=== PATIENT | female | born 1940 | race Caucasian/White ===

== ENCOUNTER 2016-08-06 10:07 | Inpatient (IN) | payer MEDICARE, OTHER ==
[2016-08-06 10:08] VITALS: BMI 19.6
[2016-08-06] MEDS ORDERED: Albuterol-Ipratrop 3 mg / 0.5 (3 ml) UD ONE ×2 (10:18→11:23)
--- NOTE | 2016-08-06 10:47 | C.PDOC ---
History Of Present Illness 76-year-old male, PMHx includes Hypertension, Asthma and COPD, presents to the emergency department with complaints of shortness of breath, that started four days ago. Patient notes that this is associated with a non-productive cough and subjective fever. Patient denies nausea/vomiting, hemoptysis, diarrhea, chest pain, or any numbness, weakness. No other complaints at this time. Time Seen by Provider: 08/06/16 10:33 Chief Complaint (Nursing): Respiratory Distress History Per: Patient History/Exam Limitations: no limitations Onset/Duration Of Symptoms: Days, Persistent Current Symptoms Are (Timing): Still Present Quality: Sharp Severity: Moderate Pain Scale Rating Of: 5 Associated Symptoms: Fever, Chills. denies: Chest Pain Recent travel outside of the [place]: No Past Medical History Reviewed: Historical Data, Nursing Documentation, Vital Signs Vital Signs: Last Vital Signs Temp 98.7 F 08/06/16 10:21 Pulse 87 08/06/16 11:05 Resp 24 08/06/16 11:05 BP 151/77 H 08/06/16 11:05 Pulse Ox 93 L 08/06/16 12:06 - Medical History PMH: Asthma, COPD, HTN Family History: States: No Known Family Hx - Social History Hx Tobacco Use: No Hx Alcohol Use: No Hx Substance Use: No - Immunization History Hx Tetanus Toxoid Vaccination: No Hx Influenza Vaccination: Yes Hx Pneumococcal Vaccination: No Review Of Systems Except As Marked, All Systems Reviewed And Found Negative. Constitutional: Negative for: Fever Cardiovascular: Negative for: Chest Pain Respiratory: Positive for: Cough, Shortness of Breath Gastrointestinal: Negative for: Vomiting Musculoskeletal: Negative for: Back Pain Skin: Negative for: Rash Physical Exam - Physical Exam Appears: Non-toxic, No Acute Distress Skin: Warm, Dry, No Rash Head: Atraumatic, Normacephalic Eye(s): bilateral: Normal Inspection, PERRL Nose: Normal Oral Mucosa: Moist Lips: Normal Appearing Throat: No Erythema, No Exudate Neck: Normal ROM, Supple Cardiovascular: Rhythm Regular, No Friction Rub, No Murmur Respiratory: Decreased Breath Sounds (at the lung bases), No Accessory Muscle Use Gastrointestinal/Abdominal: Bowel Sounds (active), Soft, No Tenderness Back: Normal Inspection, No CVA Tenderness Extremity: Normal ROM, No Calf Tenderness, No Swelling Neurological/Psych: Oriented x3, Normal Speech, Normal Motor Gait: Steady ED Course And Treatment - Laboratory Results Result Diagrams: 08/06/16 11:34 08/06/16 11:09 ECG: Interpreted By Me ECG Rhythm: Sinus Rhythm Interpretation Of ECG: normal ST- T waves, normal axis, normal R wave progression Rate From EC O2 Sat by Pulse Oximetry: 93 (on RA) Pulse Ox Interpretation: Abnormal (low) - Radiology CXR: Viewed By Me, Read By Radiologist CXR Interpretation: Yes: Other (Biapical pleural thickening with upper lobe granulomatous changes. Diffuse increased interstitial lung markings. Prominent patchy bibasilar airspace opacities with associated questionable small bilateral pleural effusions.) Medical Decision Making Medical Decision Making: The patient is currently speaking in full sentences and O2 sat is 91-93% on RA. Nebulizers and solu-medrol given. CXR shows pleural thickening with increased interstitial lung markings which is more likely pneumonia than CHF as pro-BNP is negative and patient has elevated WBC. Blood culture sent and patient started on Rocephin and Zithromax IV. On re-exam, the patient reports no improvement and now has rib pain. Toradol IV given for rib pain and patient is placed on 3L NC. Lungs have mild decreased breath sounds at the base. heart is RRR, pulse ox is 96% on 3L NC. The case was discussed with Dr. Denise (PMD) who agrees to admit the patient to his service. Disposition - Disposition Disposition: HOSPITALIZED Disposition Time: 12:01 Condition: FAIR - POA Present On Arrival: None - Clinical Impression Clinical Impression: Pneumonia - Scribe Statement The provider has reviewed the documentation as recorded by the Donita Conley All medical record entries made by the Naomiibtavo were at my direction and personally dictated by me. I have reviewed the chart and agree that the record accurately reflects my personal performance of the history, physical exam, medical decision making, and the department course for this patient. I have also personally directed, reviewed, and agree with the discharge instructions and disposition.
[2016-08-06] MEDS: Albuterol-Ipratrop 3 mg / 0.5 (3 ml) UD IH SCH ×3 (11:10→11:35)
[2016-08-06 11:28] LABS: ALKALINE PHOSPHATASE 146 U/L (38-126); ALT/SGPT 28 U/L (9-52); AST/SGOT 39 U/L (14-36); BILIRUBIN,TOTAL 2.3 mg/dL (0.2-1.3); BLOOD UREA NITROGEN 24 mg/dL (7-17); CALCIUM 8.5 mg/dl (8.6-10.4); CARBON DIOXIDE 25 mmol/L (22-30); CHLORIDE 90 mmol/L (98-107); GFR AFRICAN-AMERICAN > 60; GLUCOSE,RANDOM 116 mg/dL (65-105); POTASSIUM 3.2 mmol/L (3.6-5.2); SODIUM 129 mmol/L (132-148); TOTAL PROTEIN 7.6 g/dL (6.3-8.3)
--- NOTE | 2016-08-06 11:28 | RAD ---
PROCEDURE: CHEST RADIOGRAPH, 1 VIEW HISTORY: SOB, cough COMPARISON: 04/20/2013 FINDINGS: LUNGS: Biapical pleural thickening with upper lobe granulomatous changes. Diffuse increased interstitial lung markings. Prominent patchy bibasilar airspace opacities with associated questionable small bilateral pleural effusions. PLEURA: As above. CARDIOVASCULAR: Cardiomegaly. Calcification at the aortic knob. Right paratracheal airspace opacity may represent prominent vasculature. OSSEOUS STRUCTURES: Degenerative changes in the spine and shoulders. VISUALIZED UPPER ABDOMEN: Normal. OTHER FINDINGS: None. IMPRESSION: Biapical pleural thickening with upper lobe granulomatous changes. Diffuse increased interstitial lung markings. Prominent patchy bibasilar airspace opacities with associated questionable small bilateral pleural effusions.
[2016-08-06 11:39] LABS: BASO % 0.3 % (0.0-2.0); EOS % 0.2 % (0.0-4.0); HEMATOCRIT 36.9 % (34.0-47.0); LYMPH # 1.4 K/uL (1.0-4.3); LYMPH % 8.7 % (20.0-40.0); MEAN CORPUSCULAR HEMOGLOBIN 29.6 pg (27.0-31.0); MEAN CORPUSCULAR HGB CONC 33.3 g/dL (33.0-37.0); MONO # 1.3 K/uL (0.0-0.8); MONO % 8.1 % (0.0-10.0); PLATELET COUNT 334 K/uL (130-400); RED CELL DISTRIBUTION WIDTH 13.7 % (11.5-14.5)
[2016-08-06 11:42] LABS: WHITE BLOOD COUNT 15.7 K/uL (4.8-10.8)
[2016-08-06] MEDS ORDERED: Sodium Chloride 0.9% 1,000 ML IV ONE (11:54)
[2016-08-06] MEDS ORDERED: cefTRIAXone IV 1 gm in Dextros 50 ML IV ONE (12:06)
[2016-08-06] MEDS ORDERED: Azithromycin 500mg/250ML NS 500 MG/250 ML BAG IV SCH (12:15)
[2016-08-06] MEDS ORDERED: cefTRIAXone IV 1 gm in Dextros 50 ML IVPB ONE (12:24)
[2016-08-06] MEDS ORDERED: Azithromycin 500mg/250ML NS 500 MG/250 ML BAG IVPB ONE (13:03)
[2016-08-06 14:03] LABS: EOSINOPHIL 1 % (0-4); NEUTROPHIL 78 % (50-75); TOTAL CELLS COUNTED 100
[2016-08-06] MEDS ORDERED: Potassium Chloride 20 mEq ER Tab PO STA (14:13)
[2016-08-06] MEDS ORDERED: Potassium Chloride 20 mEq ER Tab PO ONE (14:52)
--- NOTE | 2016-08-06 17:04 | CP.PCM.HP ---
History of Present Illness - History of Present Illness History of Present Illness: CC: shortness of breath and cough Patient is a 76 year old female with past medical history hypertension , asthma, and COPD presenting to the ED with shortness of breath. Patient states that the shortness of breath began four days ago while she was at home. Patient describes the shortness of breath as different than an asthma attack, experiencing associated fevers, chills, and cough. She states the cough is productive with beige-yellow phlegm production. Patient reports that Mucinex helped her expectorate phlegm this weekend and she is not coughing as much today. Patient denies headache, dizziness, nausea, vomiting, hemoptysis, chest pain, palpitations, abdominal pain, diarrhea, constipation, numbness, tingling, and lower extremity swelling. PMD: Dr. Denise PMHx: HTN, asthma, COPD Meds: Amlodipine 10mg, Ventolin HFA 90 mcg/actuation IH, Advair 250/50 1 puff q12h Allergies: seasonal; NKDA PSHx: hysterectomy 2014 Hospitalizations: several hospitalizations for asthma exacerbation, most recent July 2014 Social: lives in [place] apartment with , retired, quit smoking 37 years ago with 5 pack years prior, denies alcohol use, denies recreational drug use Present on Admission - Present on Admission Any Indicators Present on Admission: No History of DVT/PE: No History of Uncontrolled Diabetes: No Urinary Catheter: No Decubitus Ulcer Present: No Review of Systems - Constitutional Constitutional: Chills, Fatigue, Fever. absent: Excessive Sweating, Headache, Night Sweats - EENT Eyes: absent: Change in Vision, Discharge Nose/Mouth/Throat: absent: Nasal Congestion, Nasal Discharge, Post Nasal Drip, Sore Throat - Cardiovascular Cardiovascular: absent: Chest Pain, Palpitations, Rapid Heart Rate - Respiratory Respiratory: Cough, Change in Mucous Color, Pain with Coughing. absent: Hemoptysis, Wheezing - Gastrointestinal Gastrointestinal: absent: Abdominal Pain, Constipation, Diarrhea, Nausea, Vomiting - Genitourinary Genitourinary: absent: Hematuria, Urinary Frequency - Musculoskeletal Musculoskeletal: absent: Arthralgias, Muscle Cramps, Muscle Weakness, Numbness, Stiffness, Tingling - Integumentary Integumentary: absent: Rash, Swelling - Neurological Neurological: absent: Dizziness, Numbness, Headaches, Paresthesias, Tingling, Weakness - Psychiatric Psychiatric: absent: Confusion, Irritability Past Patient History - Infectious Disease Hx of Infectious Diseases: None - Past Social History Smoking Status: Never Smoked - CARDIAC Hx Hypertension: Yes - PULMONARY Hx Asthma: Yes Hx Chronic Obstructive Pulmonary Disease (COPD): Yes - PSYCHIATRIC Hx Substance Use: No - SURGICAL HISTORY Hx Surgeries: Yes Hx Orthopedic Surgery: Yes (foot sx) Other/Comment: 'Ovarian sx' Meds Allergies/Adverse Reactions: Allergies Allergy/AdvReac Type Severity Reaction Status Date / Time No Known Allergies Allergy Verified 10/23/12 05:27 Physical Exam - Constitutional Appears: Well, No Acute Distress, Younger Than Stated Age - Head Exam Head Exam: ATRAUMATIC, NORMOCEPHALIC - Eye Exam Eye Exam: EOMI, Normal appearance, PERRL - ENT Exam ENT Exam: Mucous Membranes Moist - Neck Exam Neck exam: Positive for: Normal Inspection - Respiratory Exam Respiratory Exam: Chest Wall Tenderness, Rhonchi - Cardiovascular Exam Cardiovascular Exam: Tachycardia, +S1, +S2. absent: Gallop, Rubs - GI/Abdominal Exam GI & Abdominal Exam: Normal Bowel Sounds, Soft. absent: Firm, Guarding, Rebound , Tenderness - Exam Exam: absent: Bladder Distension - Extremities Exam Extremities exam: Positive for: normal inspection. Negative for: joint swelling , pedal edema, tenderness - Back Exam Back exam: NORMAL INSPECTION. absent: CVA tenderness (L), CVA tenderness (R) - Neurological Exam Neurological exam: Alert, CN II-XII Intact, Oriented x3 - Psychiatric Exam Psychiatric exam: Normal Affect, Normal Mood - Skin Skin Exam: Dry, Intact Results - Vital Signs Recent Vital Signs: Last Vital Signs Temp 98.4 F 08/06/16 16:36 Pulse 86 08/06/16 16:36 Resp 18 08/06/16 16:36 BP 164/97 H 08/06/16 16:36 Pulse Ox 96 08/06/16 16:36 - Labs Result Diagrams: 08/06/16 11:34 08/06/16 11:09 Labs: Laboratory Results - last 24 hr 08/06/16 15:11 Influenza Typ A,B (EIA) Negative for flu a/b Assessment & Plan - Assessment and Plan (Free Text) Assessment: Shortness of Breath likely secondary to pneumonia Productive cough, fever/chills x 4 days WBC 15.7, will monitor Band neutrophils 5, will monitor Chest X ray: Diffuse pleural thickening with upper lobe granulomatous changes. Diffuse increased interstitial lung markings. Prominent patchy bibasilar airspace opacities with associated questionable small bilateral pleural effusions Procalcitonin ordered, will follow up Shock VBG ordered, will follow up Influenza antibody - negative Legionella urine antigen ordered Mycoplasma pneumoniae IgM ordered Strep pneumoniae serology ordered - will follow up f/u Sputum culture Rocephin 1gm IV given in ED. Azithromycin 500mg IV given in ED. Will continue Rocephin 1 gm IVPB daily and Azithromycin 500 mg IVPB daily Duoneb 3ml INH RQ6 [facility] Mucinex DM q4h PRN History of Asthma Duoneb 3ml INH RQ6 Consider starting Singular 10mg po HS Will monitor History of COPD Advair 250/50 1 puff INH RQ12 Will monitor Hyponatremia Sodium 129 - will monitor Fluid restriction 1500mL /day If no improvement, consider chest CT Hypokalemia Potassium 3.3 - likely secondary to Duoneb treatment kdur 40 mEq PO ordered STAT Will monitor Hypertension Continue home medication amlodipine 10mg PO daily Will monitor and adjust as needed Prophylaxis Lovenox 40mg SC daily SCD Pepcid 20 mg po daily - Date & Time Date: 08/06/16 Time: 17:30
[2016-08-07] MEDS: Albuterol-Ipratrop 3 mg / 0.5 (3 ml) UD INH SCH ×4 (01:19→19:52)
[2016-08-07] MEDS: guaiFENesin DM 200 mg-20 mg/10 ml UD PO PRN ×3 (02:32→18:09)
[2016-08-07 07:39] LABS: BASO % 0.1 % (0.0-2.0); HEMATOCRIT 35.4 % (34.0-47.0); LYMPH # 0.8 K/uL (1.0-4.3); LYMPH % 6.6 % (20.0-40.0); MEAN CELL VOLUME 89.1 fL (81.0-99.0); MEAN CORPUSCULAR HEMOGLOBIN 29.4 pg (27.0-31.0); MONO # 0.8 K/uL (0.0-0.8); MONO % 6.2 % (0.0-10.0); NRBC % 0.1 % (0.0-2.0); PLATELET COUNT 390 K/uL (130-400); RED CELL DISTRIBUTION WIDTH 13.5 % (11.5-14.5); WHITE BLOOD COUNT 12.7 K/uL (4.8-10.8)
[2016-08-07 08:00] LABS: CHLORIDE 100 mmol/L (98-107)
[2016-08-07 08:01] LABS: POTASSIUM 4.2 mmol/L (3.6-5.2); SODIUM 135 mmol/L (132-148)
[2016-08-07 08:02] LABS: CHOLESTEROL 182 mg/dL (0-199)
[2016-08-07 08:03] LABS: ALKALINE PHOSPHATASE 133 U/L (38-126); AST/SGOT 26 U/L (14-36); BILIRUBIN,TOTAL 0.6 mg/dL (0.2-1.3); BLOOD UREA NITROGEN 24 mg/dL (7-17); CARBON DIOXIDE 24 mmol/L (22-30); GFR AFRICAN-AMERICAN > 60; GLUCOSE,RANDOM 168 mg/dL (65-105)
[2016-08-07 08:04] LABS: ALT/SGPT 23 U/L (9-52); MAGNESIUM 2.4 mg/dL (1.6-2.3)
[2016-08-07 09:46] LABS: NEUTROPHIL 80 % (50-75); TOTAL CELLS COUNTED 100
[2016-08-07] MEDS: Fluticasone-Salmeterol 250-50mcg Diskus INH SCH ×2 (10:19→19:49)
[2016-08-07] MEDS: Enoxaparin 40 mg Syringe SC SCH (11:02)
--- NOTE | 2016-08-07 14:02 | CP.PCM.PN ---
<RomyMilan - Last Filed: 08/07/16 13:59> Subjective - Date & Time of Evaluation Date of Evaluation: 08/07/16 Time of Evaluation: 08:00 - Subjective Subjective: PGY-1 Medicine Progress Note for Dr. Denise Patient seen and examiend at bedside. No acute event overnight. Patient resting in bed comfortably receiving breathing treatment. Patient stated that her breathing has improved. She also reported that mucinex is helping with her cough. Patient continuing IV abx. She is tolerating diet and had a BM yesterday. Deneid fever/chills, cp, palpitaions, abd pain, n/v/d, incontinence. Objective - Vital Signs/Intake and Output Vital Signs (last 24 hours): Temp Pulse Resp BP Pulse Ox 97.7 F 82 20 167/82 H 100 08/07/16 08:00 08/07/16 08:00 08/07/16 08:00 08/07/16 08:00 08/07/16 08:00 Intake and Output: 08/07/16 08/07/16 06:59 18:59 Intake Total 150 Balance 150 - Medications Medications: Current Medications Albuterol/Ipratropium (Duoneb 3 Mg/0.5 Mg (3 Ml) Ud) 3 ml INH RQ6 [facility] Last Admin: 08/07/16 13:29 Dose: 3 ml Amlodipine Besylate (Norvasc) 10 mg PO DAILY [facility] Last Admin: 08/07/16 11:02 Dose: 10 mg Enoxaparin Sodium (Lovenox) 40 mg SC DAILY [facility] Last Admin: 08/07/16 11:02 Dose: 40 mg Famotidine (Pepcid) 20 mg PO DAILY [facility] Last Admin: 08/07/16 11:02 Dose: 20 mg Guaifenesin/Dextromethorphan (Robitussin Dm) 10 ml PO Q4H PRN PRN Reason: Cough and congestion Last Admin: 08/07/16 11:15 Dose: 10 ml Azithromycin 500 mg/ Sodium (Chloride) 250 mls @ 250 mls/hr IVPB DAILY [facility] Ceftriaxone Sodium 1 gm/ (Sodium Chloride) 100 mls @ 100 mls/hr IVPB DAILY [facility] Last Admin: 08/07/16 11:02 Dose: 100 mls/hr Fluticasone/Salmeterol (Advair Diskus 250/50) 1 puff INH RQ12 [facility] Last Admin: 08/07/16 10:19 Dose: Not Given - Labs Labs: 08/07/16 06:35 08/07/16 06:35 - Constitutional Appears: No Acute Distress, Younger Than Stated Age - Head Exam Head Exam: ATRAUMATIC, NORMOCEPHALIC - Eye Exam Eye Exam: EOMI, Normal appearance Pupil Exam: PERRL - ENT Exam ENT Exam: Mucous Membranes Moist - Neck Exam Neck Exam: Normal Inspection - Respiratory Exam Respiratory Exam: Chest Wall Tenderness, Rhonchi, NORMAL BREATHING PATTERN. absent: Accessory Muscle Use, Respiratory Distress - Cardiovascular Exam Cardiovascular Exam: RRR, +S1, +S2 - GI/Abdominal Exam GI & Abdominal Exam: Soft, Normal Bowel Sounds. absent: Tenderness - Extremities Exam Extremities Exam: Normal Capillary Refill. absent: Calf Tenderness - Back Exam Back Exam: absent: CVA tenderness (L), CVA tenderness (R) - Neurological Exam Neurological Exam: Alert, Awake, CN II-XII Intact, Oriented x3 - Psychiatric Exam Psychiatric exam: Normal Affect, Normal Mood - Skin Skin Exam: Dry, Intact Assessment and Plan - Assessment and Plan (Free Text) Plan: Shortness of Breath likely secondary to pneumonia Productive cough, fever/chills x 4 days Bands 7 today Chest X ray: Diffuse pleural thickening with upper lobe granulomatous changes. Diffuse increased interstitial lung markings. Prominent patchy bibasilar airspace opacities with associated questionable small bilateral pleural effusions Procalcitonin ordered, will follow up Shock VBG ordered, will follow up Influenza antibody - negative Legionella urine antigen ordered Mycoplasma pneumoniae IgM ordered Strep pneumoniae serology ordered - will follow up f/u Sputum culture Rocephin 1gm IVPB daily Azithromycin 500mg IVPB daily Duoneb 3ml INH RQ6 [facility] Mucinex DM q4h PRN History of Asthma Duoneb 3ml INH RQ6 Consider starting Singular 10mg po HS Will monitor History of COPD Advair 250/50 1 puff INH RQ12 Will monitor Hyponatremia Sodium 135 - will monitor Fluid restriction 1500mL /day If no improvement, consider chest CT Hypokalemia Resolved Potassium 4.2 Will monitor Hypertension Continue home medication amlodipine 10mg PO daily Will monitor and adjust as needed Prophylaxis Lovenox 40mg SC daily SCD Pepcid 20 mg po daily <Jaylon Deinse Jr. - Last Filed: 08/10/16 13:56> Objective - Vital Signs/Intake and Output Vital Signs (last 24 hours): Temp Pulse Resp BP Pulse Ox 97.9 F 95 H 20 120/72 96 08/09/16 15:00 08/09/16 15:00 08/09/16 15:00 08/09/16 15:00 08/09/16 15:00 - Labs Labs: 08/09/16 08:17 08/09/16 08:17 Attending/Attestation - Attestation I have personally seen and examined this patient.: Yes I have fully participated in the care of the patient.: Yes I have reviewed all pertinent clinical information, including history, physical exam and plan: Yes Notes (Text): 08/10/16 13:56 Agree with findings and plan
[2016-08-07] MEDS: Azithromycin 500 MG in Sodium Chloride 0.9% 250 ML IVPB SCH (14:07)
--- NOTE | 2016-08-07 19:11 | CARD ---
APPROVED REPORT EKG Measurement Heart [id number] <Conclusion> Normal sinus rhythm Normal ECG
[2016-08-08] MEDS: Albuterol-Ipratrop 3 mg / 0.5 (3 ml) UD INH SCH ×4 (01:24→19:50)
[2016-08-08] MEDS: Enoxaparin 40 mg Syringe SC SCH (09:17)
[2016-08-08] MEDS: guaiFENesin DM 200 mg-20 mg/10 ml UD PO PRN ×3 (09:18→18:42)
[2016-08-08] MEDS: Fluticasone-Salmeterol 250-50mcg Diskus INH SCH (10:34)
[2016-08-08] MEDS: Azithromycin 500 MG in Sodium Chloride 0.9% 250 ML IVPB SCH (10:37)
[2016-08-08 14:15] LABS: BASO # 0.1 K/uL (0.0-0.2); BASO % 0.7 % (0.0-2.0); EOS # 0.1 K/uL (0.0-0.7); EOS % 1.3 % (0.0-4.0); LYMPH % 18.5 % (20.0-40.0); MEAN CELL VOLUME 90.4 fL (81.0-99.0); MEAN CORPUSCULAR HEMOGLOBIN 29.5 pg (27.0-31.0); MEAN CORPUSCULAR HGB CONC 32.7 g/dL (33.0-37.0); MEAN PLATELET VOLUME 7.3 fL (7.2-11.7); MONO # 1.3 K/uL (0.0-0.8); MONO % 11.6 % (0.0-10.0); WHITE BLOOD COUNT 10.9 K/uL (4.8-10.8)
[2016-08-08 14:23] LABS: CHLORIDE 100 mmol/L (98-107); SODIUM 137 mmol/L (132-148)
[2016-08-08 14:24] LABS: POTASSIUM 3.9 mmol/L (3.6-5.2)
[2016-08-08 14:26] LABS: ALKALINE PHOSPHATASE 96 U/L (38-126); ALT/SGPT 29 U/L (9-52); AST/SGOT 22 U/L (14-36); BILIRUBIN,TOTAL 0.4 mg/dL (0.2-1.3); BLOOD UREA NITROGEN 21 mg/dL (7-17); CARBON DIOXIDE 25 mmol/L (22-30); GFR AFRICAN-AMERICAN > 60; GLUCOSE,RANDOM 111 mg/dL (65-105); TOTAL PROTEIN 6.4 g/dL (6.3-8.3)
[2016-08-08 14:27] LABS: CALCIUM 8.3 mg/dl (8.6-10.4)
--- NOTE | 2016-08-08 20:57 | CP.PCM.PN ---
<Juan Carlos Pepper - Last Filed: 08/09/16 01:38> Subjective - Date & Time of Evaluation Date of Evaluation: 08/08/16 Time of Evaluation: 07:30 - Subjective Subjective: PGY-1 Medicine Progress Note for Dr. Denise Patient seen and examiend at bedside. No acute event overnight. Patient resting in bed comfortably receiving breathing treatment. Patient stated that her breathing and cough are still improving. Patient continuing IV abx. She is still tolerating diet and denies headache, fever, chills, chest pain, difficulty breathing, N/V/D, or any GI/ symptoms. Objective - Vital Signs/Intake and Output Vital Signs (last 24 hours): Temp Pulse Resp BP Pulse Ox 98.1 F 91 H 19 134/80 95 08/08/16 15:00 08/08/16 15:00 08/08/16 15:00 08/08/16 15:00 08/08/16 15:00 Intake and Output: 08/08/16 08/09/16 18:59 06:59 Intake Total 1000 Balance 1000 - Medications Medications: Current Medications Albuterol/Ipratropium (Duoneb 3 Mg/0.5 Mg (3 Ml) Ud) 3 ml INH RQ6 [facility] Last Admin: 08/08/16 19:50 Dose: 3 ml Amlodipine Besylate (Norvasc) 10 mg PO DAILY [facility] Last Admin: 08/08/16 09:18 Dose: 10 mg Enoxaparin Sodium (Lovenox) 40 mg SC DAILY [facility] Last Admin: 08/08/16 09:17 Dose: 40 mg Famotidine (Pepcid) 20 mg PO DAILY [facility] Last Admin: 08/08/16 09:17 Dose: 20 mg Guaifenesin/Dextromethorphan (Robitussin Dm) 10 ml PO Q4H PRN PRN Reason: Cough and congestion Last Admin: 08/08/16 18:42 Dose: 10 ml Azithromycin 500 mg/ Sodium (Chloride) 250 mls @ 250 mls/hr IVPB DAILY [facility] Last Admin: 08/08/16 10:37 Dose: 250 mls/hr Ceftriaxone Sodium 1 gm/ (Sodium Chloride) 100 mls @ 100 mls/hr IVPB DAILY [facility] Last Admin: 08/08/16 09:16 Dose: 100 mls/hr Fluticasone/Salmeterol (Advair Diskus 250/50) 1 puff INH RQ12 [facility] Last Admin: 08/08/16 10:34 Dose: Not Given - Labs Labs: 08/08/16 14:04 08/08/16 14:04 - Constitutional Appears: Non-toxic, No Acute Distress - Head Exam Head Exam: ATRAUMATIC, NORMOCEPHALIC - Eye Exam Eye Exam: EOMI, Normal appearance - ENT Exam ENT Exam: Mucous Membranes Moist, Normal Exam - Neck Exam Neck Exam: Full ROM, Normal Inspection. absent: Lymphadenopathy - Respiratory Exam Respiratory Exam: Clear to Ausculation Bilateral, NORMAL BREATHING PATTERN - Cardiovascular Exam Cardiovascular Exam: REGULAR RHYTHM, RRR, +S1, +S2. absent: JVD - GI/Abdominal Exam GI & Abdominal Exam: Soft, Normal Bowel Sounds. absent: Tenderness - Extremities Exam Extremities Exam: Full ROM, Normal Capillary Refill. absent: Joint Swelling - Back Exam Back Exam: Full ROM. absent: CVA tenderness (L), CVA tenderness (R) - Neurological Exam Neurological Exam: Alert, Awake, Oriented x3 - Psychiatric Exam Psychiatric exam: Normal Affect, Normal Mood - Skin Skin Exam: Dry, Intact, Normal Color, Warm Assessment and Plan - Assessment and Plan (Free Text) Plan: Shortness of Breath likely secondary to pneumonia Productive cough, fever/chills x 4 days Bands 7 today Chest X ray: Diffuse pleural thickening with upper lobe granulomatous changes. Diffuse increased interstitial lung markings. Prominent patchy bibasilar airspace opacities with associated questionable small bilateral pleural effusions Procalcitonin ordered, negative Shock VBG ordered, will follow up Influenza antibody - negative Legionella urine antigen negative Mycoplasma pneumoniae IgM negative Strep pneumoniae serology ordered - will follow up Sputum culture - Moderate polymorphonuclear wbc's, few gram - rods Blood culture - No Growth after 48 hours Rocephin 1gm IVPB daily Azithromycin 500mg IVPB daily Duoneb 3ml INH RQ6 [facility] Mucinex DM q4h PRN History of Asthma Duoneb 3ml INH RQ6 Consider starting Singular 10mg po HS Will monitor History of COPD Advair 250/50 1 puff INH RQ12 Will monitor Hyponatremia Sodium 135 - will monitor Fluid restriction 1500mL /day If no improvement, consider chest CT Hypokalemia Resolved Potassium 4.2 Will monitor Hypertension Continue home medication amlodipine 10mg PO daily Will monitor and adjust as needed Prophylaxis Lovenox 40mg SC daily SCD Pepcid 20 mg po daily <Jaylon Denise Jr. - Last Filed: 08/10/16 13:58> Objective - Vital Signs/Intake and Output Vital Signs (last 24 hours): Temp Pulse Resp BP Pulse Ox 97.9 F 95 H 20 120/72 96 08/09/16 15:00 08/09/16 15:00 08/09/16 15:00 08/09/16 15:00 08/09/16 15:00 - Labs Labs: 08/09/16 08:17 08/09/16 08:17 Attending/Attestation - Attestation I have personally seen and examined this patient.: Yes I have fully participated in the care of the patient.: Yes I have reviewed all pertinent clinical information, including history, physical exam and plan: Yes Notes (Text): 08/10/16 13:58 Findings and plan discussed
[2016-08-08 23:35] VITALS: RESP 20
[2016-08-09] MEDS: Albuterol-Ipratrop 3 mg / 0.5 (3 ml) UD INH SCH ×3 (01:52→14:04)
[2016-08-09 07:44] VITALS: PULSE 95
[2016-08-09 08:30] LABS: BASO # 0.1 K/uL (0.0-0.2); BASO % 0.9 % (0.0-2.0); EOS # 0.3 K/uL (0.0-0.7); EOS % 3.4 % (0.0-4.0); HEMATOCRIT 38.9 % (34.0-47.0); LYMPH % 24.6 % (20.0-40.0); MEAN CELL VOLUME 89.8 fL (81.0-99.0); MEAN CORPUSCULAR HGB CONC 32.3 g/dL (33.0-37.0); MEAN PLATELET VOLUME 7.3 fL (7.2-11.7); MONO # 0.5 K/uL (0.0-0.8); MONO % 6.5 % (0.0-10.0); RED CELL DISTRIBUTION WIDTH 13.9 % (11.5-14.5); WHITE BLOOD COUNT 7.9 K/uL (4.8-10.8)
[2016-08-09 08:39] LABS: CHLORIDE 97 mmol/L (98-107); POTASSIUM 3.7 mmol/L (3.6-5.2); SODIUM 138 mmol/L (132-148)
[2016-08-09 08:41] LABS: ALB/GLOB RATIO 1.1 (1.0-2.1); ALKALINE PHOSPHATASE 100 U/L (38-126); ALT/SGPT 14 U/L (9-52); AST/SGOT 19 U/L (14-36); BILIRUBIN,TOTAL 0.5 mg/dL (0.2-1.3); BLOOD UREA NITROGEN 20 mg/dL (7-17); CARBON DIOXIDE 23 mmol/L (22-30); GFR AFRICAN-AMERICAN > 60; GLUCOSE,RANDOM 149 mg/dL (65-105); TOTAL PROTEIN 6.8 g/dL (6.3-8.3)
[2016-08-09] MEDS: Fluticasone-Salmeterol 250-50mcg Diskus INH SCH ×2 (08:48→12:11)
--- NOTE | 2016-08-09 08:57 | CP.PCM.PN ---
<Sinai Peterson - Last Filed: 08/09/16 10:45> Subjective - Date & Time of Evaluation Date of Evaluation: 08/09/16 Time of Evaluation: 08:54 - Subjective Subjective: Patient seen and examined at bedside. No acute events per nursing. She is resting comfortably, sitting at side of bed, watching television. Patient states her breathing is improved and she denies shortness of breath. She continues to have cough productive of beige sputum. She denies fever, chills, chest pain, abdominal pain, nausea and vomiting. She is tolerating diet well and having normal bowel movements. Objective - Vital Signs/Intake and Output Vital Signs (last 24 hours): Temp Pulse Resp BP Pulse Ox 98.3 F 95 H 20 114/70 95 08/09/16 07:41 08/09/16 07:41 08/09/16 07:41 08/09/16 07:41 08/09/16 07:41 Intake and Output: 08/09/16 08/09/16 06:59 18:59 Intake Total 500 Balance 500 - Medications Medications: Current Medications Albuterol/Ipratropium (Duoneb 3 Mg/0.5 Mg (3 Ml) Ud) 3 ml INH RQ6 [facility] Last Admin: 08/09/16 08:47 Dose: 3 ml Amlodipine Besylate (Norvasc) 10 mg PO DAILY [facility] Last Admin: 08/08/16 09:18 Dose: 10 mg Enoxaparin Sodium (Lovenox) 40 mg SC DAILY [facility] Last Admin: 08/08/16 09:17 Dose: 40 mg Famotidine (Pepcid) 20 mg PO DAILY [facility] Last Admin: 08/08/16 09:17 Dose: 20 mg Guaifenesin/Dextromethorphan (Robitussin Dm) 10 ml PO Q4H PRN PRN Reason: Cough and congestion Last Admin: 08/08/16 18:42 Dose: 10 ml Azithromycin 500 mg/ Sodium (Chloride) 250 mls @ 250 mls/hr IVPB DAILY [facility] Last Admin: 08/08/16 10:37 Dose: 250 mls/hr Ceftriaxone Sodium 1 gm/ (Sodium Chloride) 100 mls @ 100 mls/hr IVPB DAILY [facility] Last Admin: 08/08/16 09:16 Dose: 100 mls/hr Fluticasone/Salmeterol (Advair Diskus 250/50) 1 puff INH RQ12 [facility] Last Admin: 08/09/16 08:48 Dose: Not Given - Labs Labs: 08/09/16 08:17 08/09/16 08:17 - Constitutional Appears: Non-toxic, No Acute Distress - Head Exam Head Exam: ATRAUMATIC, NORMAL INSPECTION, NORMOCEPHALIC - Eye Exam Eye Exam: EOMI, Normal appearance, PERRL - ENT Exam ENT Exam: Mucous Membranes Moist - Respiratory Exam Respiratory Exam: Clear to Ausculation Bilateral, NORMAL BREATHING PATTERN. absent: Rales, Rhonchi, Wheezes - Cardiovascular Exam Cardiovascular Exam: +S1, +S2. absent: Tachycardia - GI/Abdominal Exam GI & Abdominal Exam: Soft, Normal Bowel Sounds. absent: Distended, Firm, Tenderness - Extremities Exam Extremities Exam: Normal Inspection. absent: Pedal Edema, Tenderness - Neurological Exam Neurological Exam: Alert, Awake, Oriented x3 Neuro motor strength exam: Left Upper Extremity: 5, Right Upper Extremity: 5, Left Lower Extremity: 5, Right Lower Extremity: 5 - Psychiatric Exam Psychiatric exam: Normal Affect, Normal Mood - Skin Skin Exam: Intact, Normal Color, Warm Assessment and Plan - Assessment and Plan (Free Text) Assessment: Shortness of Breath likely secondary to pneumonia Afebrile WBC 7.9 Chest X ray: Diffuse pleural thickening with upper lobe granulomatous changes. Diffuse increased interstitial lung markings. Prominent patchy bibasilar airspace opacities with associated questionable small bilateral pleural effusions Procalcitonin 0.48 Influenza antibody - negative Legionella urine antigen negative Mycoplasma pneumoniae IgM negative Sputum culture - Moderate polymorphonuclear wbc's, few gram negative rods Blood culture - No Growth after 48 hours Continue antibiotic therapy with Azithromycin 500mg IVPB daily and Rocephin 1gm IVPB daily Duoneb 3ml INH RQ6 [facility] Mucinex DM q4h PRN History of Asthma Duoneb 3ml INH RQ6 Consider starting Singular 10mg po HS Will monitor History of COPD Advair 250/50 1 puff INH RQ12 Will monitor Thrombocytosis Platelets 559 Likely reactive secondary to infection. Monitor Hyponatremia Resolved Fluid restriction 1500mL /day If no improvement, consider chest CT Hypokalemia Resolved Potassium 4.2 Will monitor Hypertension Continue home medication amlodipine 10mg PO daily Will monitor and adjust as needed Prophylaxis Lovenox 40mg SC daily SCD Pepcid 20 mg po daily <Denise,Jaylon Demond Jr. - Last Filed: 08/10/16 13:59> Objective - Vital Signs/Intake and Output Vital Signs (last 24 hours): Temp Pulse Resp BP Pulse Ox 97.9 F 95 H 20 120/72 96 08/09/16 15:00 08/09/16 15:00 08/09/16 15:00 08/09/16 15:00 08/09/16 15:00 - Labs Labs: 08/09/16 08:17 08/09/16 08:17 Attending/Attestation - Attestation I have personally seen and examined this patient.: Yes I have fully participated in the care of the patient.: Yes I have reviewed all pertinent clinical information, including history, physical exam and plan: Yes Notes (Text): 08/10/16 13:59 Agree with findings and plan
[2016-08-09] MEDS: Azithromycin 500 MG in Sodium Chloride 0.9% 250 ML IVPB SCH (11:01)
[2016-08-09] MEDS: Enoxaparin 40 mg Syringe SC SCH (11:02)
[2016-08-09] MEDS: guaiFENesin DM 200 mg-20 mg/10 ml UD PO PRN (11:03)
[2016-08-09 16:43] VITALS: BP 120/72; TEMP 97.9; O2SAT 96
[2016-08-09 22:17] LABS: STREP PNEMONIAE 1 AB IgG 0.5 mcg/mL; STREP PNEMONIAE 12 AB IgG <0.3 mcg/mL; STREP PNEMONIAE 14 AB IgG 1.9 mcg/mL; STREP PNEMONIAE 19 AB IgG 1.3 mcg/mL; STREP PNEMONIAE 23 AB IgG 0.7 mcg/mL; STREP PNEMONIAE 26 AB IgG 0.3 mcg/mL; STREP PNEMONIAE 3 AB IgG 0.5 mcg/mL; STREP PNEMONIAE 4 AB IgG <0.3 mcg/mL; STREP PNEMONIAE 5 AB IgG 2.5 mcg/mL; STREP PNEMONIAE 51 AB IgG 0.6 mcg/mL; STREP PNEMONIAE 56 AB IgG <0.3 mcg/mL; STREP PNEMONIAE 8 AB IgG 0.4 mcg/mL; STREP PNEMONIAE 9 AB IgG 0.3 mcg/mL
--- NOTE | 2016-08-12 20:52 | CP.PCM.DIS ---
Provider - Provider Date of Admission: 08/06/16 12:30 Attending physician: Jaylon Denise Jr, MD Primary care physician: Dr. Denise Time Spent in preparation of Discharge (in minutes): 31 Diagnosis - Discharge Diagnosis (1) Pneumonia Status: Acute Hospital Course - Lab Results Lab Results: Micro Results 08/06/16 16:02 Sputum Gram Stain - Final 08/06/16 16:02 Sputum Sputum Culture - Final Yeast Species Most Recent Lab Values WBC 7.9 K/uL (4.8-10.8) 08/09/16 08: RBC 4.33 Mil/uL (3.80-5.20) 08/09/16 08:17 Hgb 12.5 g/dL (11.0-16.0) 08/09/16 08: Hct 38.9 % (34.0-47.0) 08/09/16 08: MCV 89.8 fL (81.0-99.0) 08/09/16 08: MCH 29.0 pg (27.0-31.0) 08/09/16 08: MCHC 32.3 g/dL (33.0-37.0) L 08/09/16 08: RDW 13.9 % (11.5-14.5) 08/09/16 08: Plt Count 559 K/uL (130-400) H 08/09/16 08:17 MPV 7.3 fL (7.2-11.7) 08/09/16 08:17 Neut % (Auto) 64.6 % (50.0-75.0) 08/09/16 08: Lymph % (Auto) 24.6 % (20.0-40.0) 08/09/16 08:17 [place] % (Auto) 6.5 % (0.0-10.0) 08/09/16 08: Eos % (Auto) 3.4 % (0.0-4.0) 08/09/16 08: Baso % (Auto) 0.9 % (0.0-2.0) 08/09/16 08:17 Neut # 5.1 K/uL (1.8-7.0) 08/09/16 08: Lymph # 2.0 K/uL (1.0-4.3) 04/29/17 08:17 [place] # 0.5 K/uL (0.0-0.8) 08/09/16 08:17 Eos # 0.3 K/uL (0.0-0.7) 08/09/16 08:17 Baso # 0.1 K/uL (0.0-0.2) 08/09/16 08:17 Neutrophils % (Manual) 80 % (50-75) H 08/07/16 06:35 Band Neutrophils % 7 % (0-2) H 08/07/16 06:35 Lymphocytes % (Manual) 7 % (20-40) L 08/07/16 06:35 Monocytes % (Manual) 6 % (0-10) 08/07/16 06:35 Eosinophils % (Manual) 1 % (0-4) 08/06/16 11:34 Platelet Estimate Normal (NORMAL) 08/07/16 06:35 RBC Morphology Normal 08/07/16 06:35 Sodium 138 mmol/L (132-148) 08/09/16 08:17 Potassium 3.7 mmol/L (3.6-5.2) 08/09/16 08:17 Chloride 97 mmol/L (98-107) L 08/09/16 08:17 Carbon Dioxide 23 mmol/L (22-30) 08/09/16 08:17 Anion Gap 21 (10-20) H 08/09/16 08:17 BUN 20 mg/dL (7-17) H 08/09/16 08:17 Creatinine 0.7 MG/DL (0.7-1.2) 08/09/16 08:17 Est GFR ( Amer) > 60 08/09/16 08:17 Est GFR (Non-Af Amer) > 60 08/09/16 08:17 Random Glucose 149 mg/dL (65-105) H 08/09/16 08:17 Hemoglobin A1c 5.7 % (4.2-6.5) 08/07/16 06:35 Calcium 9.0 mg/dl (8.6-10.4) 08/09/16 08:17 Magnesium 2.4 mg/dL (1.6-2.3) H 08/07/16 06:35 Total Bilirubin 0.5 mg/dL (0.2-1.3) 08/09/16 08:17 AST 19 U/L (14-36) 08/09/16 08:17 ALT 14 U/L (9-52) 08/09/16 08:17 Alkaline Phosphatase 100 U/L (38-126) 08/09/16 08:17 Troponin I < 0.0120 ng/mL (0.00-0.120) 08/06/16 11:09 NT-Pro-B Natriuret Pep 267 pg/mL (0-900) 08/06/16 11:09 Total Protein 6.8 g/dL (6.3-8.3) 08/09/16 08:17 Albumin 3.5 g/dL (3.5-5.0) 08/09/16 08:17 Globulin 3.3 gm/dL (2.2-3.9) 08/09/16 08:17 Albumin/Globulin Ratio 1.1 (1.0-2.1) 08/09/16 08:17 Triglycerides 66 mg/dL (0-149) 08/07/16 06:35 Cholesterol 182 mg/dL (0-199) 08/07/16 06:35 LDL Cholesterol Direct 101 mg/dL (0-129) 08/07/16 06:35 HDL Cholesterol 40 mg/dL (30-70) 08/07/16 06:35 Procalcitonin 0.48 NG/ML (0.19-0.49) 08/06/16 15:11 Influenza Typ A,B (EIA) Negative for flu a/b (NEGATIVE) 08/06/16 15:11 Ur L.pneumophila Ag Negative (NEGATIVE) 08/06/16 21:21 Mycoplasma pneumon IgM Negative (NEGATIVE) 08/06/16 15:11 S.pneumoniae Type 1 IgG 0.5 mcg/mL 08/06/16 15:32 S.pneumoniae Type 3 IgG 0.5 mcg/mL 08/06/16 15:32 S.pneumoniae Type 4 IgG <0.3 mcg/mL 08/06/16 15:32 S.pneumoniae Type 5 IgG 2.5 mcg/mL 08/06/16 15:32 S.pneumoniae Type 8 IgG 0.4 mcg/mL 08/06/16 15:32 S.pneumoniae Type 9 IgG 0.3 mcg/mL 08/06/16 15:32 S.pneumoniae Typ 12 IgG <0.3 mcg/mL 08/06/16 15:32 S.pneumoniae Typ 14 IgG 1.9 mcg/mL 08/06/16 15:32 S.pneumonia Type 19 IgG 1.3 mcg/mL 08/06/16 15:32 S.pneumonia Type 23 IgG 0.7 mcg/mL 08/06/16 15:32 S.pneumoniae Typ 26 IgG 0.3 mcg/mL 08/06/16 15:32 S.pneumoniae Typ 51 IgG 0.6 mcg/mL 08/06/16 15:32 S.pneumoniae Typ 56 IgG <0.3 mcg/mL 08/06/16 15:32 S.pneumoniae Typ 68 IgG 1.0 mcg/mL 08/06/16 15:32 - Hospital Course Hospital Course: CC: shortness of breath and cough Patient is a 76 year old female with past medical history hypertension , asthma, and COPD presenting to the ED with shortness of breath. Patient states that the shortness of breath began four days ago while she was at home. Patient describes the shortness of breath as different than an asthma attack, experiencing associated fevers, chills, and cough. She states the cough is productive with beige-yellow phlegm production. Patient reports that Mucinex helped her expectorate phlegm this weekend and she is not coughing as much today. Patient denies headache, dizziness, nausea, vomiting, hemoptysis, chest pain, palpitations, abdominal pain, diarrhea, constipation, numbness, tingling, and lower extremity swelling. PMD: Dr. Denise PMHx: HTN, asthma, COPD Meds: Amlodipine 10mg, Ventolin HFA 90 mcg/actuation IH, Advair 250/50 1 puff q12h Allergies: seasonal; NKDA PSHx: hysterectomy 2014 Hospitalizations: several hospitalizations for asthma exacerbation, most recent July 2014 Social: lives in [place] apartment with , retired, quit smoking 37 years ago with 5 pack years prior, denies alcohol use, denies recreational drug use During hospital course: Pneumonia Afebrile, no leukocytosis Chest X ray: Diffuse pleural thickening with upper lobe granulomatous changes. Diffuse increased interstitial lung markings. Prominent patchy bibasilar airspace opacities with associated questionable small bilateral pleural effusions Procalcitonin 0.48 Influenza antibody - negative Legionella urine antigen negative Mycoplasma pneumoniae IgM negative Sputum culture - Moderate polymorphonuclear wbc's, few gram negative rods Blood culture - No Growth after 48 hours Patient was treated with Azithromycin 500mg IVPB daily and Rocephin 1gm IVPB daily Duoneb 3ml INH RQ6 [facility] Mucinex DM q4h PRN History of Asthma Duoneb 3ml INH RQ6 History of COPD Advair 250/50 1 puff INH RQ12 Thrombocytosis Platelets 559 Likely reactive secondary to infection. Monitor Hyponatremia Resolved Fluid restriction 1500mL /day Hypokalemia Resolved Potassium was repleted as needed Hypertension Patient continued on home medication amlodipine 10mg PO daily Prophylaxis Lovenox 40mg SC daily [facility] Pepcid 20 mg po daily Please note this is a summary of hospital course. For full details please see patient chart. Discharge Instructions: Patient medically stable for discharge. Patient instructed to take the following new medication as prescribed: Levaquin 500 mg tab by mouth daily for 5 days (total of 5 pills) Patient instructed to follow-up with primary care doctor, Dr. Denise, within one week of discharge. Patient instructed to return to the emergency department if symptoms recur. Patient given detailed instructions at bedside. Patient understands and agrees. - Date & Time of H&P Date of H&P: 08/06/16 Time of H&P: 17:01 Discharge Exam - Head Exam Head Exam: ATRAUMATIC, NORMAL INSPECTION, NORMOCEPHALIC - Eye Exam Eye Exam: EOMI, Normal appearance, PERRL Pupil Exam: PERRL - ENT Exam ENT Exam: Normal Exam - Neck Exam Neck exam: Full Rom - Respiratory Exam Respiratory Exam: Clear to PA & Lateral, NORMAL BREATHING PATTERN, UNREMARKABLE. absent: Rales, Rhonchi, Wheezes - Cardiovascular Exam Cardiovascular Exam: +S1, +S2. absent: Tachycardia, Systolic Murmur - GI/Abdominal Exam GI & Abdominal Exam: Normal Bowel Sounds, Unremarkable. absent: Distended, Guarding - Extremities Exam Extremities exam: normal inspection, pedal pulses present - Back Exam Back exam: absent: CVA tenderness (L), CVA tenderness (R) - Neurological Exam Neurological exam: Alert, Normal Gait, Oriented x3 - Skin Skin Exam: Dry, Intact, Normal Color, Warm Discharge Plan - Discharge Medications Prescriptions: Albuterol HFA [Ventolin HFA 90 mcg/actuation (8 g)] 0.09 mg IH Q4H PRN #1 inhaler PRN Reason: Wheezing amLODIPine [Norvasc] 10 mg PO DAILY #30 Fluticasone/Salmeterol 250/50 [Advair Diskus 250/50] 1 dsk IH Q12H #1 inhaler Levofloxacin [Levaquin] 500 mg PO DAILY #5 tablet - Follow Up Plan Condition: FAIR Disposition: HOME/ ROUTINE Instructions: Albuterol (By breathing), Amlodipine (By mouth), Levofloxacin ( By mouth), Fluticasone/Salmeterol (By breathing), Pneumococcal Vaccine for Adults (DC), Pneumonia (DC) Additional Instructions: Patient medically stable for discharge. Patient instructed to take the following new medication as prescribed: Levaquin 500 mg tab by mouth daily for 5 days (total of 5 pills) Patient instructed to follow-up with primary care doctor, Dr. Denise, within one week of discharge. Patient instructed to return to the emergency department if symptoms recur. Patient given detailed instructions at bedside. Patient understands and agrees. Referrals: Jaylon Denise Jr., MD [Medical Doctor] -
== END 2016-08-09 18:00 | disposition home or self-care (01) | DRG 194 ==
LOC: C.ER 10:07 → C.9E 12:30 → C.3T 16:21
PROVIDERS: ADMIT Internal Medicine; ATTEND Internal Medicine
DX: J18.9 Pneumonia, unspecified organism (principal); E87.1 Hypo-osmolality and hyponatremia; J44.9 Chronic obstructive pulmonary disease, unspecified; R06.02 Shortness of breath; J45.909 Unspecified asthma, uncomplicated; E87.6 Hypokalemia; I10 Essential (primary) hypertension

== ENCOUNTER 2018-05-21 21:07 | Inpatient (IN) | payer MEDICARE ==
[2018-05-21 21:07] VITALS: BMI 19.6
[2018-05-21] MEDS ORDERED: Albuterol-Ipratrop 3 mg / 0.5 (3 ml) UD ONE ×2 (21:26→22:04)
--- NOTE | 2018-05-21 21:33 | C.PDOC ---
History Of Present Illness 78 year old female presents to the ED c/o SOB that has been worsening for the last couple of days. Patient reports she ran out of her inhaler at home. Patient denies fever, chills, nausea, vomit, dizziness, rash, headache, CP, palpit ations, weakness, numbness. Time Seen by Provider: 05/21/18 21:32 Chief Complaint (Nursing): Shortness Of Breath History Per: Patient History/Exam Limitations: no limitations Onset/Duration Of Symptoms: Days Current Symptoms Are (Timing): Still Present Initiating Event: Upper Respiratory Illness Quality: "Pain" Exacerbating Factor(s): Coughing Current Respiratory Medications: See Home Med List Severity: Moderate Pain Scale Rating Of: 5 Associated Symptoms: denies: Fever, Chills, Sweating Reports Recently: Seen In ED, Treated By A Physician, Hospitalized Recent travel outside of the [place]: No Additional History Per: Patient, Family Past Medical History Reviewed: Historical Data, Nursing Documentation, Vital Signs Vital Signs: Last Vital Signs Temp 98.6 F 05/21/18 21:10 Pulse 91 H 05/21/18 21:10 Resp 18 05/21/18 21:10 BP 162/85 H 05/21/18 21:10 Pulse Ox 94 L 05/21/18 21:10 - Medical History PMH: Asthma, COPD, HTN Surgical History: No Surg Hx Family History: States: Unknown Family Hx - Social History Hx Tobacco Use: No Hx Alcohol Use: No Hx Substance Use: No - Immunization History Hx Tetanus Toxoid Vaccination: No Hx Influenza Vaccination: Yes Hx Pneumococcal Vaccination: No Review Of Systems Constitutional: Negative for: Fever, Chills Cardiovascular: Negative for: Chest Pain Respiratory: Positive for: Shortness of Breath. Negative for: Cough, Sputum Gastrointestinal: Negative for: Nausea, Vomiting, Abdominal Pain Skin: Negative for: Rash Neurological: Negative for: Weakness, Numbness, Headache, Dizziness Physical Exam - Physical Exam Appears: Non-toxic, In Acute Distress Skin: Warm, Dry Head: Normacephalic Eye(s): bilateral: Normal Inspection Oral Mucosa: Moist Throat: No Erythema Neck: Supple Chest: Symmetrical Cardiovascular: Rhythm Regular (tachycardic) Respiratory: No Rales, Rhonchi (scattered), No Wheezing Gastrointestinal/Abdominal: Soft, No Tenderness, No Guarding, No Rebound Back: No CVA Tenderness Extremity: Bilateral: Atraumatic, Normal Color And Temperature, Normal ROM Pulses: Left Dorsalis Pedis: Normal, Right Dorsalis Pedis: Normal Neurological/Psych: Oriented x3, Normal Speech, Normal Cognition Gait: Steady ED Course And Treatment - Laboratory Results Result Diagrams: 05/21/18 21:57 05/21/18 21:57 ECG: Interpreted By Me, Viewed By Me ECG Rhythm: Sinus Rhythm (101), Nonspecific Changes O2 Sat by Pulse Oximetry: 94 Pulse Ox Interpretation: Normal - Radiology CXR: Interpreted by Me, Viewed By Me CXR Interpretation: No: Infiltrates, Fracture, Pnemothorax Progress Note: Plan: - ABG. - EKG. - Labs. - CXR. - Duoneb. - Solumedrol 125 mg IVP. - Blood culture. - Influenza A B Critical Care Time - Critical Care Note Total Time (in mins): 30 Documented critical care: time excludes all time spent performing seperately billable procedures. Disposition Discussed With DrScott: Jaylon Denise Jr. Comment: accepted the pt on his service and took over the care at 12:11 AM Doctor Will See Patient In The: ED Counseled Patient/Family Regarding: Studies Performed, Diagnosis - Disposition Disposition: HOSPITALIZED Disposition Time: 21:33 Condition: FAIR Forms: [employer] (Croatian) - POA Present On Arrival: Poor Glycemic Control - Clinical Impression Clinical Impression: Acute asthma exacerbation, Bandemia, Elevated liver enzymes - Scribe Statement The provider has reviewed the documentation as recorded by the Scribe Kyrie Serna All medical record entries made by the Scribe were at my direction and personally dictated by me. I have reviewed the chart and agree that the record accurately reflects my personal performance of the history, physical exam, medical decision making, and the department course for this patient. I have also personally directed, reviewed, and agree with the discharge instructions and disposition. Decision To Admit - Pt Status Changed To: Hospital Disposition Of: Inpatient - Admit Certification Admit to Inpatient:: After my assessment, the patient will require hospitalization for at least two midnights. This is because of the severity of symptoms shown, intensity of services needed, and/or the medical risk in this patient being treated as an outpatient. - InPatient: Physician Admission Certification: I certify that this patient requires 2 or more midnights of care for the following reason:: After my assessment, the patient will require hospitalization for at least two midnights. This is because of the severity of symptoms shown, intensity of services needed, and/or the medical risk in this patient being treated as an outpatient. - . Bed Request Type: Telemetry Admitting Physician: Jaylon Denise Jr. Patient Diagnosis: Acute asthma exacerbation, Bandemia, Elevated liver enzymes
[2018-05-21 22:00] LABS: BASO % 0.4 % (0.0-2.0); EOS % 0.2 % (0.0-4.0); HEMOGLOBIN 12.2 g/dL (11.0-16.0); LYMPH # 0.6 K/uL (1.0-4.3); LYMPH % 7.8 % (20.0-40.0); MEAN CELL VOLUME 92.3 fL (81.0-99.0); MEAN CORPUSCULAR HEMOGLOBIN 30.4 pg (27.0-31.0); MEAN PLATELET VOLUME 8.9 fL (7.2-11.7); NEUT % 78.6 % (50.0-75.0); NRBC % 0.1 % (0.0-2.0); PLATELET COUNT 262 K/uL (130-400); RBC 4.02 Mil/uL (3.80-5.20); WHITE BLOOD COUNT 7.6 K/uL (4.8-10.8)
[2018-05-21] MEDS: Albuterol-Ipratrop 3 mg / 0.5 (3 ml) UD IH SCH ×2 (22:00→22:14)
[2018-05-21 22:13] LABS: ALB/GLOB RATIO 1.3 (1.0-2.1); ALT/SGPT 534 U/L (9-52); BLOOD UREA NITROGEN 24 mg/dL (7-17); CALCIUM 8.8 mg/dl (8.6-10.4); GFR NON-AFRICAN AMERICAN > 60
[2018-05-21 22:19] LABS: ABG ALLEN TEST POS; ARTERIAL BLOOD GAS O2 SAT 98.9 % (95-98); ARTERIAL BLOOD GAS PCO2 36 mm/Hg (35-45); ARTERIAL BLOOD GAS PH 7.47 (7.35-7.45); ARTERIAL BLOOD GAS PO2 93 mm/Hg (80-100); ARTERIAL BLOOD GAS TCO2 27.3 mmol/L (22-28)
[2018-05-21 22:23] LABS: AST/SGOT 861 U/L (14-36)
[2018-05-21] MEDS ORDERED: Iodixanol 320 MG/ML 100 ML BOTTLE IV ONE (22:44)
[2018-05-21 23:39] LABS: BANDS 29 % (0-2); LYMPHOCYTE 12 % (20-40); METAMYELOCYTE 1 % (0-0); MONOCYTE 16 % (0-10); NEUTROPHIL 42 % (50-75); PLATELET CLUMPS PRESENT; PLATELET ESTIMATE NORMAL (NORMAL); TOTAL CELLS COUNTED 100
[2018-05-21] MEDS ORDERED: cefTRIAXone IV 1 gm in Dextros 50 ML IVPB ONE (23:42)
[2018-05-21] MEDS ORDERED: Azithromycin 500mg/250ML NS 500 MG/250 ML BAG IVPB STA (23:47)
[2018-05-22] MEDS ORDERED: Azithromycin 500mg/250ML NS 500 MG/250 ML BAG IVPB ONE (00:04)
[2018-05-22] MEDS ORDERED: Albuterol-Ipratrop 3 mg / 0.5 (3 ml) UD INH PRN (02:42)
--- NOTE | 2018-05-22 02:48 | CP.PCM.HP ---
History of Present Illness - History of Present Illness History of Present Illness: PGY-[address] Denise's service CC: SOB and cough for 4 days HPI: Patient is a 78 yo female w/ PMH of Depression/Anxiety, HTN, Asthma admitted to hospital for evaluation of sob and cough with brownish sputum production. Patient states that she felt feverish but had not recorded any home temperature. Denies sick contacts at home. Patient states she had her pneumonia vaccine with Dr. Denise. Patient states she was taking tyelnnol with honey at home for the infection. Patient states that the reason she did not come to hospital sooner was due to a move that her family was doing. Patient denies fevers, chills, chest pain, sob, n/v, constipation or diarrhea, and dysuria currently. PMH- Depression, Anxiety, HTN, Asthma PSH- Arm surgery, bunion surgery, ovary surgery FH- Denies Meds- Lasix 20mg daily, Clonazepma 0.5mg daily, Lexapro 10mg po daily, Amlodipine 10mg po daily Alls- NKDA Social- quit tobacco 30 years ago, 3-4 cigs/ day; bacardi shots or wine nightly; Denies recreational drug use; lives with son family and partner PMD: Dr. Denise Code: Full code Present on Admission - Present on Admission Any Indicators Present on Admission: No Review of Systems - Review of Systems Review of Systems: 12 point ROS obtained and noted as in HPI Past Patient History - Infectious Disease Hx of Infectious Diseases: None - Past Medical History & Family History Past Medical History?: Yes - Past Social History Smoking Status: Never Smoked - CARDIAC Hx Hypertension: Yes - PULMONARY Hx Asthma: Yes Hx Chronic Obstructive Pulmonary Disease (COPD): Yes - MUSCULOSKELETAL/RHEUMATOLOGICAL Hx Falls: No - PSYCHIATRIC Hx Substance Use: No - SURGICAL HISTORY Hx Surgeries: Yes Hx Orthopedic Surgery: Yes (foot sx) Other/Comment: 'Ovarian sx' - ANESTHESIA Hx Anesthesia: Yes Hx Anesthesia Reactions: No Meds Allergies/Adverse Reactions: Allergies Allergy/AdvReac Type Severity Reaction Status Date / Time No Known Allergies Allergy Verified 05/21/18 21:13 Physical Exam - Constitutional Appears: Non-toxic, No Acute Distress - Head Exam Head Exam: NORMAL INSPECTION, NORMOCEPHALIC - Eye Exam Eye Exam: EOMI, Normal appearance. absent: Nystagmus, Scleral icterus - ENT Exam ENT Exam: Mucous Membranes Dry - Respiratory Exam Respiratory Exam: Wheezes, NORMAL BREATHING PATTERN. absent: Decreased Breath Sounds, Rales, Rhonchi, Respiratory Distress - Cardiovascular Exam Cardiovascular Exam: Tachycardia, REGULAR RHYTHM, +S1, +S2 - GI/Abdominal Exam GI & Abdominal Exam: Firm, Normal Bowel Sounds, Soft. absent: Diminished Bowel Sounds, Distended, Guarding, Hernia, Tenderness Additional comments: firm mass or nodule palpated in RLQ - Extremities Exam Extremities exam: Positive for: normal inspection. Negative for: calf tenderness, pedal edema - Neurological Exam Neurological exam: Alert, Oriented x3 - Psychiatric Exam Psychiatric exam: Normal Affect, Normal Mood - Skin Skin Exam: Dry, Intact, Normal Color Results - Vital Signs Recent Vital Signs: Last Vital Signs Temp 98.1 F 05/22/18 01:20 Pulse 112 H 05/22/18 01:20 Resp 20 05/22/18 01:20 BP 151/83 H 05/22/18 01:20 Pulse Ox 96 05/22/18 01:20 - Labs Result Diagrams: 05/21/18 21:57 05/21/18 21:57 Labs: Laboratory Results - last 24 hr 05/21/18 05/21/18 05/21/18 21:57 21:57 22:09 WBC 7.6 RBC 4.02 Hgb 12.2 D Hct 37.1 MCV 92.3 MCH 30.4 MCHC 33.0 RDW 16.0 H Plt Count 262 MPV 8.9 Neut % (Auto) 78.6 H Lymph % (Auto) 7.8 L Esmeralda % (Auto) 13.0 H Eos % (Auto) 0.2 Baso % (Auto) 0.4 Neut # (Auto) 6.0 Lymph # (Auto) 0.6 L Esmeralda # (Auto) 1.0 H Eos # (Auto) 0.0 Baso # (Auto) 0.0 Neutrophils % (Manual) 42 L Band Neutrophils % 29 H* Lymphocytes % (Manual) 12 L Monocytes % (Manual) 16 H Metamyelocytes % 1 H Platelet Estimate Normal Plt Clumps, EDTA Present Puncture Site pCO2 pO2 HCO3 ABG pH ABG Total CO2 ABG O2 Saturation ABG Base Excess Harlan Test ABG Potassium A-a O2 Difference Respiratory Index Glucose Lactate FiO2 Sodium 128 L Potassium 3.5 L Chloride 91 L Carbon Dioxide 27 Anion Gap 13 BUN 24 H Creatinine 0.8 Est GFR ( Amer) > 60 Est GFR (Non-Af Amer) > 60 Random Glucose 133 H D Calcium 8.8 Magnesium 1.9 Total Bilirubin 1.8 H AST 861 H D ALT 534 H D Alkaline Phosphatase 129 H D Total Protein 7.1 Albumin 4.0 Globulin 3.1 Albumin/Globulin Ratio 1.3 Arterial Blood Potassium Influenza Typ A,B (EIA) Negative for flu a/b 05/21/18 22:13 WBC RBC Hgb Hct MCV MCH MCHC RDW Plt Count MPV Neut % (Auto) Lymph % (Auto) Esmeralda % (Auto) Eos % (Auto) Baso % (Auto) Neut # (Auto) Lymph # (Auto) Esmeralda # (Auto) Eos # (Auto) Baso # (Auto) Neutrophils % (Manual) Band Neutrophils % Lymphocytes % (Manual) Monocytes % (Manual) Metamyelocytes % Platelet Estimate Plt Clumps, EDTA Puncture Site Rba pCO2 36 pO2 93 HCO3 27.0 ABG pH 7.47 H ABG Total CO2 27.3 ABG O2 Saturation 98.9 H ABG Base Excess 2.7 Harlan Test Pos ABG Potassium 2.9 L A-a O2 Difference 76.0 Respiratory Index 0.8 Glucose 130 H Lactate 1.5 FiO2 30.0 Sodium 129.0 L Potassium Chloride 95.0 L Carbon Dioxide Anion Gap BUN Creatinine Est GFR ( Amer) Est GFR (Non-Af Amer) Random Glucose Calcium Magnesium Total Bilirubin AST ALT Alkaline Phosphatase Total Protein Albumin Globulin Albumin/Globulin Ratio Arterial Blood Potassium 2.9 L Influenza Typ A,B (EIA) Assessment & Plan - Assessment and Plan (Free Text) Assessment: Patient is a 78 yo female w/ PMH of HTN, Depression/Anxiety, and asthma admitted to hospital for sob and cough w/ sputum production. SOB w/ cough CXR full read pending- possible PNA due to cx symptoms Afebrile, no leukocytosis, high bands on labs Zosyn 3.375mg IV q6h giancarlo; Vanc 1gm q24h giancarlo PNA studies pending; BCx pending CT chest pending Duoneb q4 g[address] abd/pelvis pending Repeat CMP in AM Hepatitis Panel pending HIV panel pending Electrolyte Disturbace Hypokalemia repleted with kdur 20meq po Hyponatremia- urine studies pending, serum osm pending consider fluid repletion if usom studies suggestive of dehydration HTN Amlodipine 10mg po daily Lasix 20mg po daily Depression/Anxiety Lexapro 10mg po daily Clonazepam 0.5mg po daily Hx of asthma Duoneb q4 giancarlo PGY-1 Izzy Jack D/W Dr. Denise
[2018-05-22] MEDS: Albuterol-Ipratrop 3 mg / 0.5 (3 ml) UD INH SCH ×6 (03:35→23:46)
[2018-05-22] MEDS: Piperacill/Tazo 3.375gm in Dex 3.375 GM/50 ML BAG IVPB SCH ×4 (04:00→19:44)
[2018-05-22 08:46] LABS: HEPATITIS B SURFACE AG Negative (NEGATIVE)
[2018-05-22 08:52] LABS: HEPATITIS A IGM NEGATIVE (NEGATIVE); HEPATITIS B CORE AB NEGATIVE (NEGATIVE)
--- NOTE | 2018-05-22 08:55 | CP.PCM.PN ---
Subjective - Date & Time of Evaluation Date of Evaluation: 05/22/18 Time of Evaluation: 08:00 - Subjective Subjective: Patient examined at bedside. No acute events overnight. Patient reports symptoms of SOB are much improved since admission. Pt reports she ran out of her asthma pump medication at home, and was not scheduled to see Dr. Denise until this Thursday and has been without her pump for 4 days with worsening SOB. Pt reports some cough, also improved since admission. Pt denies chest pain, nausea, abdominal pain, diarrhea. Objective - Vital Signs/Intake and Output Vital Signs (last 24 hours): Temp Pulse Resp BP Pulse Ox 97.8 F 90 18 171/90 H 94 L 05/22/18 07:30 05/22/18 07:45 05/22/18 07:30 05/22/18 07:30 05/22/18 07:30 Intake and Output: 05/22/18 05/22/18 06:59 18:59 Intake Total 420 Balance 420 - Medications Medications: Current Medications Albuterol/Ipratropium (Duoneb 3 Mg/0.5 Mg (3 Ml) Ud) 3 ml INH RQ4 GIANCARLO Last Admin: 05/22/18 07:38 Dose: 3 ml Amlodipine Besylate (Norvasc) 10 mg PO DAILY GIANCARLO Clonazepam (Klonopin) 0.5 mg PO DAILY GIANCARLO Escitalopram Oxalate (Lexapro) 10 mg PO DAILY GIANCARLO Piperacillin Sod/Tazobactam Sod (Zosyn 3.375 Gm Iv Premix) 3.375 gm in 50 mls @ 100 mls/hr IVPB Q6H GIANCARLO; Protocol Last Admin: 05/22/18 04:00 Dose: 100 mls/hr Vancomycin HCl 1 gm/ Sodium (Chloride) 250 mls @ 166.7 mls/hr IVPB Q24H GIANCARLO; Protocol Last Admin: 05/22/18 04:33 Dose: 166.7 mls/hr Pneumococcal Polyvalent Vaccine (Pneumovax 23 Vaccine) 0.5 ml IM .ONCE ONE Stop: 05/24/18 10:01 Potassium Chloride (K-Dur 20 Meq Er Tab) 20 meq PO DAILY GIANCARLO - Labs Labs: 05/21/18 21:57 05/21/18 21:57 - Constitutional Appears: Non-toxic, No Acute Distress - Head Exam Head Exam: ATRAUMATIC, NORMAL INSPECTION, NORMOCEPHALIC - Eye Exam Eye Exam: EOMI, Normal appearance - ENT Exam ENT Exam: Mucous Membranes Moist, Normal Exam - Neck Exam Neck Exam: Normal Inspection - Respiratory Exam Respiratory Exam: Rales, NORMAL BREATHING PATTERN. absent: Wheezes, Respiratory Distress - Cardiovascular Exam Cardiovascular Exam: REGULAR RHYTHM. absent: Tachycardia - GI/Abdominal Exam GI & Abdominal Exam: Soft, Normal Bowel Sounds. absent: Distended, Tenderness - Extremities Exam Extremities Exam: Normal Inspection. absent: Calf Tenderness, Pedal Edema - Neurological Exam Neurological Exam: Alert, Awake, Oriented x3 - Psychiatric Exam Psychiatric exam: Normal Affect, Normal Mood - Skin Skin Exam: Dry, Intact, Normal Color, Warm Assessment and Plan - Assessment and Plan (Free Text) Assessment: 78 yo female w/ PMH of HTN, Depression/Anxiety, and asthma admitted for evaluation of SOB, treatment of asthma exacerbation and suspected pneumonia Plan: Sepsis 2/[address]: B/L basilar infiltrates in lower lobes/lingula/right middle lobe sub segments. Intermixed atelectasis likely. Biapical pleural fibrotic changes and superior segment right lower lobe pleura posteriorly Bandemia of 29 on admission, 26 today IV Abx; Zosyn 3.375mg IV q6h giancarlo; Vanc 1gm q24h giancarlo Procalcitonin 31.26 Duoneb q4 [facility] Pulmonology, Dr. Silva Transaminitis CT abd/pelvis: sigmoid diverticulosis, areas of focal fatty liver infiltration. Repeat CMP in AM Downtrending, continue to monitor All workup negative Hx of asthma Duonebs q4 giancarlo Electrolyte Disturbace Hypokalemia repleted with kdur 20meq po and 40mEq IV Hyponatremia- urine studies pending, serum osm pending consider fluid repletion if usom studies suggestive of dehydration HTN Amlodipine 10mg po daily Lasix 20mg po daily Depression/Anxiety Lexapro 10mg po daily Clonazepam 0.5mg po daily Discussed with Dr. Howie Kaur, PGY-1
[2018-05-22 09:03] LABS: HEPATITIS C ANTIBODY NEGATIVE (NEGATIVE)
[2018-05-22] MEDS: Potassium Chloride 20 mEq ER Tab PO SCH (09:21)
[2018-05-22 10:15] LABS: N MENINGITIS ACY/W135 NEGATIVE (NEGATIVE); N MENINGITIS B/ECOLI K1 NEGATIVE (NEGATIVE); STREPTOCOCCUS B NEGATIVE (NEGATIVE)
[2018-05-22 10:16] LABS: MYCOPLASMA PNEUMONIAE IGM NEGATIVE (NEGATIVE)
[2018-05-22 11:10] LABS: BASO % 0.5 % (0.0-2.0); EOS % 0.1 % (0.0-4.0); HEMOGLOBIN 12.2 g/dL (11.0-16.0); LYMPH # 0.2 K/uL (1.0-4.3); LYMPH % 4.5 % (20.0-40.0); MEAN CELL VOLUME 92.2 fL (81.0-99.0); MEAN CORPUSCULAR HEMOGLOBIN 31.8 pg (27.0-31.0); MEAN CORPUSCULAR HGB CONC 34.4 g/dL (33.0-37.0); MEAN PLATELET VOLUME 7.8 fL (7.2-11.7); MONO # 0.4 K/uL (0.0-0.8); MONO % 7.3 % (0.0-10.0); NEUT # 4.8 K/uL (1.8-7.0); NEUT % 87.6 % (50.0-75.0); PLATELET COUNT 347 K/uL (130-400); RBC 3.84 Mil/uL (3.80-5.20); RED CELL DISTRIBUTION WIDTH 15.8 % (11.5-14.5); WHITE BLOOD COUNT 5.5 K/uL (4.8-10.8)
[2018-05-22 11:25] LABS: ALB/GLOB RATIO 1.1 (1.0-2.1); ALBUMIN 3.3 g/dL (3.5-5.0); ALT/SGPT 612 U/L (9-52); BLOOD UREA NITROGEN 19 mg/dL (7-17); CALCIUM 8.4 mg/dl (8.6-10.4); GFR NON-AFRICAN AMERICAN > 60
[2018-05-22 11:38] LABS: AST/SGOT 673 U/L (14-36)
[2018-05-22 11:44] LABS: BANDS 26 % (0-2); LYMPHOCYTE 5 % (20-40); METAMYELOCYTE 1 % (0-0); MONOCYTE 10 % (0-10); NEUTROPHIL 58 % (50-75); PLATELET ESTIMATE NORMAL (NORMAL); TOTAL CELLS COUNTED 100
[2018-05-22 11:45] LABS: ANISOCYTOSIS SLIGHT; LARGE PLATELETS PRESENT; PLATELET CLUMPS PRESENT; TOXIC GRANULATION PRESENT
[2018-05-22 11:46] LABS: HYPOCHROMIC SLIGHT; POLYCHROMIC SLIGHT
--- NOTE | 2018-05-22 11:56 | RAD ---
Date of service: 05/21/2018 HISTORY: SOB COMPARISON: Portable chest 08/06/2016. FINDINGS: LUNGS: Mild fibrotic changes seen the bilateral lung bases with no alveolitis appreciated at this time. Improved aeration is identified in the bilateral lung bases in the interval. PLEURA: No significant pleural effusion identified, no pneumothorax apparent. CARDIOVASCULAR: No aortic atherosclerotic calcification present. Normal cardiac size. No pulmonary vascular congestion. OSSEOUS STRUCTURES: No significant abnormalities. VISUALIZED UPPER ABDOMEN: Normal. OTHER FINDINGS: None. IMPRESSION: Mild fibrotic changes in the bilateral bases with improved aeration bilaterally. No consolidation, pleural effusion or pneumothorax appreciated bilaterally. No pulmonary vascular congestion.
--- NOTE | 2018-05-22 13:08 | CT ---
Date of service: 05/22/2018 PROCEDURE: CT Chest without contrast HISTORY: sob, pneumonia COMPARISON: None available. TECHNIQUE: Contiguous axial images were obtained through the chest without intravenous contrast enhancement. Sagittal and coronal reconstructions were performed. Radiation dose: Total exam DLP = 255.84 mGy-cm. This CT exam was performed using one or more of the following dose reduction techniques: Automated exposure control, adjustment of the mA and/or kV according to patient size, and/or use of iterative reconstruction technique. FINDINGS: LUNGS: Biapical pulmonary fibrosis. Occasional fibrotic changes seen related to pleural at the superior segment right lower lobe posteriorly. Limited consolidation is seen at the bilateral lung bases including dependent and nondependent locations. Element of sub segmental atelectasis is likely intermixed at the lower lobes bilaterally. MEDIASTINUM: No thoracic aortic aneurysm. Normal sized heart. Main pulmonary artery unremarkable. No vascular congestion. [id number] hiatal hernia. No significant lymphadenopathy appreciable. Calcific atherosclerotic changes are seen related to the thoracic aorta. . PLEURA: No pleural fluid. No pneumothorax. BONES: No fracture. No destructive lesion. UPPER ABDOMEN: Grossly unremarkable. OTHER FINDINGS: None. IMPRESSION: 1. Bilateral basilar infiltrates are identified affecting not only bilateral lower lobe but also lingula and right middle lobe sub segments. Intermixed atelectasis likely. No pleural effusion or significant lymphadenopathy bilaterally. 2. Biapical pleural fibrotic changes as well as superior segment right lower lobe pleura posteriorly. 3. [id number] hiatal hernia.
--- NOTE | 2018-05-22 13:55 | CT ---
Date of service: 05/21/2018 PROCEDURE: CT Abdomen and Pelvis with contrast HISTORY: elevated liver enzymes COMPARISON: None. TECHNIQUE: Following the intravenous administration of iodinated contrast material, a CT examination of the abdomen and pelvis was performed from the domes of the diaphragms to the symphysis pubis with reformatted datasets provided in axial, sagittal and coronal planes. Oral contrast was not administered as per referring physician request. Contrast dose: Visipaque 320, 100 cc Radiation dose: Total exam DLP = 391.24 mGy-cm. This CT exam was performed using one or more of the following dose reduction techniques: Automated exposure control, adjustment of the mA and/or kV according to patient size, and/or use of iterative reconstruction technique. FINDINGS: LOWER THORAX: Bilateral interstitial pulmonary disease appreciated on acute or chronic basis at the bilateral lung bases with limited alveolar component affecting right middle and lower lobe sub segments. No pleural or pericardial effusion. Mild hiatal hernia identified. Cardiomegaly is noted. LIVER: Areas of focal fatty infiltration along the plane of the falciform ligament as well as more medially in the left lobe liver. No gross lesion or ductal dilatation. GALLBLADDER AND BILE DUCTS: Unremarkable. PANCREAS: Unremarkable. No gross lesion or ductal dilatation. SPLEEN: Unremarkable. ADRENALS: Punctate calcification is identified associated the right adrenal gland without focal mass identified otherwise. Left adrenal gland appears normal. KIDNEYS AND URETERS: Unremarkable. No hydronephrosis. No solid mass. VASCULATURE: Nonaneurysmal abdominal aortic calcific atherosclerotic changes are identified. BOWEL: Sigmoid diverticular changes are identified without definite diverticulitis. No bowel obstruction. No focal enteritis or colitis pattern appreciable grossly. Evaluation of the gastrointestinal tract is limited due to the lack of oral contrast administration. APPENDIX: Not identified. No CT evidence of appendicitis. PERITONEUM: Unremarkable. No free fluid. No free air. LYMPH NODES: Unremarkable. No enlarged lymph nodes. BLADDER: Unremarkable. REPRODUCTIVE: Prior hysterectomy. BONES: Levoscoliotic lumbar spinal deformity. No definite fracture identified. OTHER FINDINGS: None. IMPRESSION: 1. sigmoid diverticulosis without diverticulitis. 2. Prior hysterectomy. 3. No dilatation of the biliary tree appreciable. Limited areas of focal fatty infiltration identified at the left lobe liver medially. 4. Bilateral basilar interstitial infiltrates with limited associated alveolar components as discussed above. Preliminary report provided by Sandi, 05/22/2018, 12:15 a.m..
[2018-05-23] MEDS: Piperacill/Tazo 3.375gm in Dex 3.375 GM/50 ML BAG IVPB SCH ×4 (02:47→19:46)
[2018-05-23] MEDS: Albuterol-Ipratrop 3 mg / 0.5 (3 ml) UD INH SCH ×5 (03:14→19:56)
[2018-05-23 08:05] LABS: BASO % 0.1 % (0.0-2.0); EOS % 0.1 % (0.0-4.0); HEMOGLOBIN 11.6 g/dL (11.0-16.0); LYMPH # 0.6 K/uL (1.0-4.3); LYMPH % 8.7 % (20.0-40.0); MEAN CELL VOLUME 92.4 fL (81.0-99.0); MEAN CORPUSCULAR HEMOGLOBIN 31.2 pg (27.0-31.0); MEAN CORPUSCULAR HGB CONC 33.8 g/dL (33.0-37.0); MEAN PLATELET VOLUME 7.5 fL (7.2-11.7); MONO # 0.9 K/uL (0.0-0.8); MONO % 12.4 % (0.0-10.0); NEUT # 5.7 K/uL (1.8-7.0); NEUT % 78.7 % (50.0-75.0); NRBC % 0.2 % (0.0-2.0); PLATELET COUNT 388 K/uL (130-400); RBC 3.73 Mil/uL (3.80-5.20); RED CELL DISTRIBUTION WIDTH 15.8 % (11.5-14.5); WHITE BLOOD COUNT 7.2 K/uL (4.8-10.8)
[2018-05-23 08:31] LABS: BLOOD UREA NITROGEN 18 mg/dL (7-17); CALCIUM 8.4 mg/dl (8.6-10.4)
[2018-05-23 08:34] LABS: ALB/GLOB RATIO 1.1 (1.0-2.1); ALBUMIN 3.1 g/dL (3.5-5.0); ALT/SGPT 579 U/L (9-52); AST/SGOT 407 U/L (14-36); GFR NON-AFRICAN AMERICAN > 60
--- NOTE | 2018-05-23 08:36 | CP.PCM.PN ---
Subjective - Date & Time of Evaluation Date of Evaluation: 05/23/18 Time of Evaluation: 09:30 - Subjective Subjective: Patient examined at bedside. She reports she is having anxiety secondary to long standing depression. When questioned further about alcohol consumption, she reports she drinks what appears to be 6 fl oz of rum and 1 glass of wine nightly. I explained that perhaps her transaminitis and symptoms of anxiety are 2/2 alcohol withdrawal. Pt acknowledges that her drinking is to cope with depression, and may be excessive. Discussion had regarding adding ativan to help with withdrawal, pt is receptive. Pt also reports she continues to cough, and was coughing throughout the night. Reports wheezing and SOB well controlled with treatments. Denies chest pain, nausea, diarrhea. Objective - Vital Signs/Intake and Output Vital Signs (last 24 hours): Temp Pulse Resp BP Pulse Ox 98.0 F 96 H 18 148/79 96 05/23/18 07:45 05/23/18 07:45 05/23/18 07:45 05/23/18 07:45 05/23/18 07:45 - Medications Medications: Current Medications Albuterol/Ipratropium (Duoneb 3 Mg/0.5 Mg (3 Ml) Ud) 3 ml INH RQ4 GIANCARLO Last Admin: 05/23/18 03:14 Dose: 3 ml Amlodipine Besylate (Norvasc) 10 mg PO DAILY GIANCARLO Last Admin: 05/22/18 09:21 Dose: 10 mg Benzonatate (Tessalon Perles) 100 mg PO TID GIANCARLO Last Admin: 05/22/18 19:36 Dose: 100 mg Clonazepam (Klonopin) 0.5 mg PO DAILY GIANCARLO Last Admin: 05/22/18 09:21 Dose: 0.5 mg Escitalopram Oxalate (Lexapro) 10 mg PO DAILY GIANCARLO Last Admin: 05/22/18 09:22 Dose: 10 mg Piperacillin Sod/Tazobactam Sod (Zosyn 3.375 Gm Iv Premix) 3.375 gm in 50 mls @ 100 mls/hr IVPB Q6H GIANCARLO; Protocol Last Admin: 05/23/18 02:47 Dose: 100 mls/hr Vancomycin HCl 1 gm/ Sodium (Chloride) 250 mls @ 166.7 mls/hr IVPB Q24H GIANCARLO; Protocol Last Admin: 05/23/18 02:46 Dose: 166.7 mls/hr Pneumococcal Polyvalent Vaccine (Pneumovax 23 Vaccine) 0.5 ml IM .ONCE ONE Stop: 05/24/18 10:01 Potassium Chloride (K-Dur 20 Meq Er Tab) 20 meq PO DAILY GIANCARLO Last Admin: 05/22/18 09:21 Dose: 20 meq - Labs Labs: 05/23/18 08:00 05/23/18 08:00 - Constitutional Appears: Non-toxic, No Acute Distress - Head Exam Head Exam: ATRAUMATIC, NORMAL INSPECTION, NORMOCEPHALIC - Eye Exam Eye Exam: EOMI, Normal appearance - ENT Exam ENT Exam: Mucous Membranes Moist, Normal Exam - Neck Exam Neck Exam: Normal Inspection - Respiratory Exam Respiratory Exam: Wheezes, NORMAL BREATHING PATTERN. absent: Respiratory Distress - Cardiovascular Exam Cardiovascular Exam: Tachycardia, REGULAR RHYTHM - GI/Abdominal Exam GI & Abdominal Exam: Soft, Normal Bowel Sounds. absent: Distended, Tenderness - Extremities Exam Extremities Exam: Normal Inspection. absent: Calf Tenderness, Pedal Edema - Neurological Exam Neurological Exam: Alert, Awake Additional comments: tremulous, upper extremity - Psychiatric Exam Psychiatric exam: Anxious, Normal Affect, Normal Mood - Skin Skin Exam: Dry, Intact, Normal Color, Warm. absent: Diaphoretic Assessment and Plan - Assessment and Plan (Free Text) Assessment: 78 yo female w/ PMH of HTN, Depression/Anxiety, and asthma admitted for evaluation of SOB, treatment of asthma exacerbation and suspected pneumonia Plan: Sepsis 2/[address]: B/L basilar infiltrates in lower lobes/lingula/right middle lobe sub segments. Intermixed atelectasis likely. Biapical pleural fibrotic changes and superior segment right lower lobe pleura posteriorly Bandemia of 29 on admission, 26 today IV Abx; Zosyn 3.375mg IV q6h giancarlo; Vanc 1gm q24h giancarlo Procalcitonin 31.26 Duoneb q4 giancarlo Tessalon Perles and Robitussin for cough Pulmonology, Dr. Silva Suspected alcohol withdrawal Added ativan 0.5mg Q8H PRN withdrawal symptoms Transaminitis, likely 2/[address] abd/pelvis: sigmoid diverticulosis, areas of focal fatty liver infiltration. Repeat CMP in AM Downtrending, continue to monitor All workup negative Hx of asthma Duonebs q4 giancarlo Electrolyte Disturbace Hypokalemia resolved after repletion Hyponatremia- improving, urine studies per nephro HTN Amlodipine 10mg po daily Lasix 20mg po daily Depression/Anxiety Lexapro 10mg po daily Clonazepam 0.5mg po daily Discussed with Dr. Howie Kaur, PGY-1
[2018-05-23] MEDS: Potassium Chloride 20 mEq ER Tab PO SCH (09:10)
[2018-05-23] MEDS: Potassium & Sodium Phosphate PO SCH ×2 (09:10→18:08)
--- NOTE | 2018-05-23 10:23 | CP.PCM.CON ---
History of Present Illness - History of Present Illness History of Present Illness: Pulmonary Consult, Covering Dr Silva The Patient was seen and examined at the bedside, Medical records reviewed, and management issues were discussed and formulated with the house staff. Events reviewed Mrs Vaughn is years old 78 female with past medical history of hypertension, asthma/COPD and Depression/Anxiety who presented to the emergency room on 05/21 with complaint of worsening of shortness of breath and Productive cough with brownish sputum production for the last couple of days she denies fever chills nausea vomiting chest pain or palpitation Patient stated that she ran out of her inhaler at home Denies recent hospitalization travel or sick contacts Patient admitted to the hospital with diagnosis of community-acquired pneumonia she was started on empiric antibiotics with IV Zosyn and DuoNeb's was restarted Patient feeling slightly better today Less SOB, Still complain of productive cough and was started on Robitussin She has been afebrile since admission and adequate saturation of 94-96% on 3 L nasal cannula 2 sets of blood cultures negative Influenza a and B swab negative urinary Legionella antigen mycoplasma pneumonia serology and HIV screen also negative Group B strep antigen all negative Social history former smoker quit tobacco 30 years ago used to smoke 3-4 cigarettes/day drinks alcohol and denies any recreational drugs chest x-ray bibasilar infiltrate 05/21/2018:Portable chest 08/06/2016. IMPRESSION: Mild fibrotic changes in the bilateral bases with improved aeration bilaterally. No consolidation, pleural effusion or pneumothorax appreciated bilaterally. No pulmonary vascular congestion. 05/22/2018: CT Chest without contrast IMPRESSION: 1. Bilateral basilar infiltrates are identified affecting not only bilateral lower lobe but also lingula and right middle lobe sub segments. Intermixed atelectasis likely. No pleural effusion or significant lymphadenopathy bila terally. 2. Biapical pleural fibrotic changes as well as superior segment right lower lobe pleura posteriorly. 3. [id number] hiatal hernia. Past Patient History - Infectious Disease Hx of Infectious Diseases: None - Past Medical History & Family History Past Medical History?: Yes - Past Social History Smoking Status: Former Smoker - CARDIAC Hx Hypertension: Yes - PULMONARY Hx Asthma: Yes Hx Chronic Obstructive Pulmonary Disease (COPD): Yes - MUSCULOSKELETAL/RHEUMATOLOGICAL Hx Falls: Yes - PSYCHIATRIC Hx Substance Use: No - SURGICAL HISTORY Hx Surgeries: Yes Hx Orthopedic Surgery: Yes (foot sx) Other/Comment: 'Ovarian sx' - ANESTHESIA Hx Anesthesia: Yes Hx Anesthesia Reactions: No Hx Malignant Hyperthermia: No Has any member of the family had a problem w/ anesthesia?: No Meds Allergies/Adverse Reactions: Allergies Allergy/AdvReac Type Severity Reaction Status Date / Time No Known Allergies Allergy Verified 05/21/18 21:13 - Medications Medications: Current Medications Albuterol/Ipratropium (Duoneb 3 Mg/0.5 Mg (3 Ml) Ud) 3 ml INH RQ4 [facility] Last Admin: 05/23/18 03:14 Dose: 3 ml Amlodipine Besylate (Norvasc) 10 mg PO DAILY [facility] Last Admin: 05/23/18 09:10 Dose: 10 mg Benzonatate (Tessalon Perles) 100 mg PO TID [facility] Last Admin: 05/23/18 09:21 Dose: 100 mg Clonazepam (Klonopin) 0.5 mg PO DAILY [facility] Last Admin: 05/23/18 09:10 Dose: 0.5 mg Escitalopram Oxalate (Lexapro) 10 mg PO DAILY [facility] Last Admin: 05/23/18 09:21 Dose: 10 mg Guaifenesin (Robitussin) 100 mg PO Q4H PRN PRN Reason: Cough Piperacillin Sod/Tazobactam Sod (Zosyn 3.375 Gm Iv Premix) 3.375 gm in 50 mls @ 100 mls/hr IVPB Q6H [facility]; Protocol Last Admin: 05/23/18 08:57 Dose: 100 mls/hr Vancomycin HCl 1 gm/ Sodium (Chloride) 250 mls @ 166.7 mls/hr IVPB Q24H [facility]; Protocol Last Admin: 05/23/18 02:46 Dose: 166.7 mls/hr Lorazepam (Ativan) 0.5 mg PO Q8 PRN PRN Reason: Symptoms of alcohol withdrawl Pneumococcal Polyvalent Vaccine (Pneumovax 23 Vaccine) 0.5 ml IM .ONCE ONE Stop: 05/24/18 10:01 Potassium Chloride (K-Dur 20 Meq Er Tab) 20 meq PO DAILY [facility] Last Admin: 05/23/18 09:10 Dose: 20 meq Potassium Phos/Sodium Phos (Neutra-Phos) 1 pkt PO BID [facility] Stop: 05/23/18 18:01 Last Admin: 05/23/18 09:10 Dose: 1 pkt Results - Vital Signs Recent Vital Signs: Last Vital Signs Temp 98.0 F 05/23/18 07:45 Pulse 96 H 05/23/18 07:45 Resp 18 05/23/18 07:45 BP 148/79 05/23/18 07:45 Pulse Ox 96 05/23/18 07:45 - Labs Result Diagrams: 05/23/18 08:00 05/23/18 08:00 Labs: Laboratory Results - last 24 hr 05/22/18 05/22/18 05/22/18 02:40 07:55 11:00 WBC 5.5 RBC 3.84 Hgb 12.2 Hct 35.4 MCV 92.2 MCH 31.8 H MCHC 34.4 RDW 15.8 H Plt Count 347 MPV 7.8 Neut % (Auto) 87.6 H Lymph % (Auto) 4.5 L Dyer % (Auto) 7.3 Eos % (Auto) 0.1 Baso % (Auto) 0.5 Neut # (Auto) 4.8 Lymph # (Auto) 0.2 L Dyer # (Auto) 0.4 Eos # (Auto) 0.0 Baso # (Auto) 0.0 Neutrophils % (Manual) 58 Band Neutrophils % 26 H* Lymphocytes % (Manual) 5 L Monocytes % (Manual) 10 Metamyelocytes % 1 H Toxic Granulation Present Platelet Estimate Normal Plt Clumps, EDTA Present Large Platelets Present Polychromasia Slight Hypochromasia (manual) Slight Anisocytosis (manual) Slight Sodium Potassium Chloride Carbon Dioxide Anion Gap BUN Creatinine Est GFR ( Amer) Est GFR (Non-Af Amer) Random Glucose Calcium Phosphorus Magnesium Total Bilirubin AST ALT Alkaline Phosphatase Total Protein Albumin Globulin Albumin/Globulin Ratio Procalcitonin 31.26 H Ur Random Sodium H.influenzae Type B Ag Negative Mycoplasma pneumon IgM Negative N.meningitidis ACY/W135 Negative N.meningi B/E.coli K1 Ag Negative Group B Strep Antigen Negative 05/22/18 05/23/18 05/23/18 11:00 00:40 08:00 WBC 7.2 RBC 3.73 L Hgb 11.6 Hct 34.4 MCV 92.4 MCH 31.2 H MCHC 33.8 RDW 15.8 H Plt Count 388 MPV 7.5 Neut % (Auto) 78.7 H Lymph % (Auto) 8.7 L Dyer % (Auto) 12.4 H Eos % (Auto) 0.1 Baso % (Auto) 0.1 Neut # (Auto) 5.7 Lymph # (Auto) 0.6 L Dyer # (Auto) 0.9 H Eos # (Auto) 0.0 Baso # (Auto) 0.0 Neutrophils % (Manual) Band Neutrophils % Lymphocytes % (Manual) Monocytes % (Manual) Metamyelocytes % Toxic Granulation Platelet Estimate Plt Clumps, EDTA Large Platelets Polychromasia Hypochromasia (manual) Anisocytosis (manual) Sodium 129 L Potassium 3.1 L Chloride 93 L Carbon Dioxide 29 Anion Gap 10 BUN 19 H Creatinine 0.7 Est GFR ( Amer) > 60 Est GFR (Non-Af Amer) > 60 Random Glucose 248 H D Calcium 8.4 L Phosphorus Magnesium Total Bilirubin 0.8 AST 673 H D ALT 612 H Alkaline Phosphatase 113 Total Protein 6.3 Albumin 3.3 L Globulin 3.0 Albumin/Globulin Ratio 1.1 Procalcitonin Ur Random Sodium 12 H.influenzae Type B Ag Mycoplasma pneumon IgM N.meningitidis ACY/W135 N.meningi B/E.coli K1 Ag Group B Strep Antigen 05/23/18 08:00 WBC RBC Hgb Hct MCV MCH MCHC RDW Plt Count MPV Neut % (Auto) Lymph % (Auto) Dyer % (Auto) Eos % (Auto) Baso % (Auto) Neut # (Auto) Lymph # (Auto) Dyer # (Auto) Eos # (Auto) Baso # (Auto) Neutrophils % (Manual) Band Neutrophils % Lymphocytes % (Manual) Monocytes % (Manual) Metamyelocytes % Toxic Granulation Platelet Estimate Plt Clumps, EDTA Large Platelets Polychromasia Hypochromasia (manual) Anisocytosis (manual) Sodium 131 L Potassium 3.6 Chloride 96 L Carbon Dioxide 28 Anion Gap 11 BUN 18 H Creatinine 0.7 Est GFR ( Amer) > 60 Est GFR (Non-Af Amer) > 60 Random Glucose 152 H D Calcium 8.4 L Phosphorus 1.9 L Magnesium 2.0 Total Bilirubin 0.6 AST 407 H D ALT 579 H Alkaline Phosphatase 120 Total Protein 6.1 L Albumin 3.1 L Globulin 2.9 Albumin/Globulin Ratio 1.1 Procalcitonin Ur Random Sodium H.influenzae Type B Ag Mycoplasma pneumon IgM N.meningitidis ACY/W135 N.meningi B/E.coli K1 Ag Group B Strep Antigen Assessment & Plan (1) Multifocal pneumonia Status: Acute Priority: High (2) Fibrosis of pleura Status: Acute Priority: Medium (3) Acute asthma exacerbation Status: Acute Priority: Medium
[2018-05-23] MEDS: guaiFENesin 100 mg/5 ml Syrup UD PO PRN ×2 (11:11→20:17)
[2018-05-23 11:27] LABS: BANDS 4 % (0-2); MONOCYTE 12 % (0-10); NEUTROPHIL 74 % (50-75); REACTIVE LYMPHOCYTES 1 % (0-0); TOTAL CELLS COUNTED 100
[2018-05-23 11:28] LABS: ANISOCYTOSIS SLIGHT; BURR CELLS SLIGHT; HYPOCHROMIC SLIGHT; LYMPHOCYTE 9 % (20-40); PLATELET ESTIMATE NORMAL (NORMAL); POIKILOCYTOSIS SLIGHT
[2018-05-24] MEDS: Albuterol-Ipratrop 3 mg / 0.5 (3 ml) UD INH SCH ×6 (00:10→19:30)
[2018-05-24] MEDS: Piperacill/Tazo 3.375gm in Dex 3.375 GM/50 ML BAG IVPB SCH ×3 (01:46→20:40)
[2018-05-24 07:46] LABS: BASO % 0.3 % (0.0-2.0); EOS % 0.3 % (0.0-4.0); HEMOGLOBIN 11.9 g/dL (11.0-16.0); LYMPH # 1.5 K/uL (1.0-4.3); LYMPH % 14.4 % (20.0-40.0); MEAN CELL VOLUME 92.7 fL (81.0-99.0); MEAN CORPUSCULAR HEMOGLOBIN 31.1 pg (27.0-31.0); MEAN CORPUSCULAR HGB CONC 33.6 g/dL (33.0-37.0); MONO # 1.7 K/uL (0.0-0.8); MONO % 16.1 % (0.0-10.0); NEUT # 7.1 K/uL (1.8-7.0); NEUT % 68.9 % (50.0-75.0); RBC 3.83 Mil/uL (3.80-5.20); WHITE BLOOD COUNT 10.3 K/uL (4.8-10.8)
[2018-05-24 08:16] LABS: ALB/GLOB RATIO 1.1 (1.0-2.1); ALBUMIN 3.1 g/dL (3.5-5.0); ALT/SGPT 440 U/L (9-52); AST/SGOT 202 U/L (14-36); BLOOD UREA NITROGEN 18 mg/dL (7-17); CALCIUM 8.4 mg/dl (8.6-10.4); GFR NON-AFRICAN AMERICAN > 60
--- NOTE | 2018-05-24 09:01 | CP.PCM.PN ---
Subjective - Date & Time of Evaluation Date of Evaluation: 05/24/18 Time of Evaluation: 08:59 - Subjective Subjective: Sherri Fierro PGY1 Progress Note for Dr. Denise Patient was examined at bedside this morning. She has no complaints today, denying fever, chills, shortness of breath, chest pain, or dizziness. Patient has no abdominal pain, nausea, vomiting, or diarrhea at this time. Objective - Vital Signs/Intake and Output Vital Signs (last 24 hours): Temp Pulse Resp BP Pulse Ox 98.7 F 85 20 131/72 93 L 05/24/18 07:00 05/24/18 07:00 05/24/18 07:00 05/24/18 07:00 05/24/18 07:00 - Medications Medications: Current Medications Albuterol/Ipratropium (Duoneb 3 Mg/0.5 Mg (3 Ml) Ud) 3 ml INH RQ4 [facility] Last Admin: 05/24/18 03:30 Dose: Not Given Amlodipine Besylate (Norvasc) 10 mg PO DAILY [facility] Last Admin: 05/23/18 09:10 Dose: 10 mg Benzonatate (Tessalon Perles) 100 mg PO TID [facility] Last Admin: 05/23/18 18:09 Dose: 100 mg Clonazepam (Klonopin) 0.5 mg PO DAILY [facility] Last Admin: 05/23/18 09:10 Dose: 0.5 mg Escitalopram Oxalate (Lexapro) 10 mg PO DAILY [facility] Last Admin: 05/23/18 09:21 Dose: 10 mg Guaifenesin (Robitussin) 100 mg PO Q4H PRN PRN Reason: Cough Last Admin: 05/23/18 20:17 Dose: 100 mg Piperacillin Sod/Tazobactam Sod (Zosyn 3.375 Gm Iv Premix) 3.375 gm in 50 mls @ 100 mls/hr IVPB Q6H [facility]; Protocol Last Admin: 05/24/18 01:46 Dose: 100 mls/hr Vancomycin HCl 1 gm/ Sodium (Chloride) 250 mls @ 166.7 mls/hr IVPB Q24H [facility]; Protocol Last Admin: 05/24/18 01:45 Dose: 166.7 mls/hr Lorazepam (Ativan) 0.5 mg PO Q8 PRN PRN Reason: Symptoms of alcohol withdrawl Last Admin: 05/23/18 10:49 Dose: 0.5 mg Pneumococcal Polyvalent Vaccine (Pneumovax 23 Vaccine) 0.5 ml IM .ONCE ONE Stop: 05/24/18 10:01 Potassium Chloride (K-Dur 20 Meq Er Tab) 20 meq PO DAILY [facility] Last Admin: 05/23/18 09:10 Dose: 20 meq - Labs Labs: 05/24/18 07:37 05/24/18 07:37 - Additional Findings Additional findings: - Constitutional Appears: Non-toxic, No Acute Distress - Head Exam Head Exam: ATRAUMATIC, NORMAL INSPECTION, NORMOCEPHALIC - Eye Exam Eye Exam: EOMI, Normal appearance - ENT Exam ENT Exam: Mucous Membranes Moist, Normal Exam - Neck Exam Neck Exam: Normal Inspection - Respiratory Exam Respiratory Exam: Wheezes in b/l upper lung prasad, NORMAL BREATHING PATTERN. absent: Respiratory Distress, Rales, Rhonchi - Cardiovascular Exam Cardiovascular Exam: Tachycardia, REGULAR RHYTHM - GI/Abdominal Exam GI & Abdominal Exam: Soft, Normal Bowel Sounds. absent: Distended, Tenderness - Extremities Exam Extremities Exam: Normal Inspection. absent: Calf Tenderness, Pedal Edema - Neurological Exam Neurological Exam: Alert, Awake, no tremors - Psychiatric Exam Psychiatric exam: Normal Affect, Normal Mood - Skin Skin Exam: Dry, Intact, Normal Color, Warm. absent: Diaphoretic Assessment and Plan - Assessment and Plan (Free Text) Assessment: 78 yo female w/ PMH of HTN, Depression/Anxiety, and asthma admitted for evaluation of SOB, treatment of asthma exacerbation and suspected pneumonia. Plan: Sepsis 2/2 Suspected Pneumonia - Chest CT: B/L basilar infiltrates in lower lobes/lingula/right middle lobe sub segments. Intermixed atelectasis likely. Biapical pleural fibrotic changes and superior segment right lower lobe pleura posteriorly - patient afebrile, no leukocytosis - bandemia resolved - Procalcitonin 31.26 - IV Abx: Zosyn 3.375mg IV q6h and Vanc 1gm q24h - Duoneb q4 [facility] - Tessalon Perles and Robitussin for cough - Pulmonology consulted, Dr. Silva: recs appreciated History of Etoh Abuse - ativan 0.5mg Q8H PRN withdrawal symptoms - patient not currently demonstrating signs of withdrawal Transaminitis, likely 2/2 alcohol intake - Downtrending today - CT abd/pelvis: sigmoid diverticulosis, areas of focal fatty liver infiltration Hx of asthma - Duonebs q4 nancy Electrolyte Disturbaces - Hypokalemia resolved after repletion - Hyponatremia: 129 today. Urine osmolality 431, Urine random sodium 12. HTN - Amlodipine 10mg po daily - Lasix 20mg po daily Depression/Anxiety - Lexapro 10mg po daily - Clonazepam 0.5mg po daily Patient seen and case discussed with Dr. Denise
[2018-05-24] MEDS: Potassium Chloride 20 mEq ER Tab PO SCH (09:44)
[2018-05-24] MEDS ORDERED: Pneumococcal 23-Valent Vaccine IM ONE (10:00)
--- NOTE | 2018-05-24 17:43 | CP.PCM.PN ---
Subjective - Date & Time of Evaluation Date of Evaluation: 05/24/18 Time of Evaluation: 10:00 - Subjective Subjective: Patient seen and examined at bedside Patient on nasal canula and sating at 93 Patient currently complains of some chest paint Denies SOB, fever, chills, palpitations, nausea, vomiting Physical Exam Gen: AAOx3, no acute distress Cardio:RRR. no murmur Pulm: Bilateral pulmonary wheezing GI: soft, nontender A/P Asthma -continue Duoneb 3mg Pneumonia -Chest Xray on 05/22/18 showed bilateral infiltrates in lower lobes, biapical pleural fibrotic changes. -Continue Vanc and Zosyn -Recommend sputum culture and sensitivity Objective - Vital Signs/Intake and Output Vital Signs (last 24 hours): Temp Pulse Resp BP Pulse Ox 97.7 F 101 H 18 129/79 94 L 05/24/18 16:00 05/24/18 16:00 05/24/18 16:00 05/24/18 16:00 05/24/18 16:00 - Medications Medications: Current Medications Albuterol/Ipratropium (Duoneb 3 Mg/0.5 Mg (3 Ml) Ud) 3 ml INH RQ4 [facility] Last Admin: 05/24/18 16:31 Dose: 3 ml Amlodipine Besylate (Norvasc) 10 mg PO DAILY [facility] Last Admin: 05/24/18 09:45 Dose: 10 mg Benzonatate (Tessalon Perles) 100 mg PO TID [facility] Last Admin: 05/24/18 17:33 Dose: 100 mg Clonazepam (Klonopin) 0.5 mg PO DAILY [facility] Last Admin: 05/24/18 09:45 Dose: 0.5 mg Escitalopram Oxalate (Lexapro) 10 mg PO DAILY [facility] Last Admin: 05/24/18 09:45 Dose: 10 mg Guaifenesin (Robitussin) 100 mg PO Q4H PRN PRN Reason: Cough Last Admin: 05/23/18 20:17 Dose: 100 mg Piperacillin Sod/Tazobactam Sod (Zosyn 3.375 Gm Iv Premix) 3.375 gm in 50 mls @ 100 mls/hr IVPB Q6H [facility]; Protocol Last Admin: 05/24/18 09:45 Dose: 100 mls/hr Vancomycin HCl 1 gm/ Sodium (Chloride) 250 mls @ 166.7 mls/hr IVPB Q24H [facility]; Protocol Last Admin: 05/24/18 01:45 Dose: 166.7 mls/hr Lorazepam (Ativan) 0.5 mg PO Q8 PRN PRN Reason: Symptoms of alcohol withdrawl Last Admin: 05/23/18 10:49 Dose: 0.5 mg Potassium Chloride (K-Dur 20 Meq Er Tab) 20 meq PO DAILY [facility] Last Admin: 05/24/18 09:44 Dose: 20 meq - Labs Labs: 05/24/18 07:37 05/24/18 07:37
[2018-05-25 01:38] VITALS: RESP 20
[2018-05-25] MEDS: Piperacill/Tazo 3.375gm in Dex 3.375 GM/50 ML BAG IVPB SCH ×4 (02:32→21:31)
[2018-05-25] MEDS: Albuterol-Ipratrop 3 mg / 0.5 (3 ml) UD INH SCH ×7 (04:00→23:28)
[2018-05-25] MEDS: guaiFENesin 100 mg/5 ml Syrup UD PO PRN ×2 (05:58→21:00)
[2018-05-25 06:35] LABS: BASO % 0.3 % (0.0-2.0); EOS # 0.2 K/uL (0.0-0.7); EOS % 1.1 % (0.0-4.0); HEMOGLOBIN 11.4 g/dL (11.0-16.0); LYMPH # 2.1 K/uL (1.0-4.3); LYMPH % 14.5 % (20.0-40.0); MEAN CELL VOLUME 91.2 fL (81.0-99.0); MEAN CORPUSCULAR HEMOGLOBIN 30.7 pg (27.0-31.0); MEAN CORPUSCULAR HGB CONC 33.6 g/dL (33.0-37.0); MEAN PLATELET VOLUME 6.8 fL (7.2-11.7); MONO # 1.5 K/uL (0.0-0.8); MONO % 10.2 % (0.0-10.0); NEUT # 10.6 K/uL (1.8-7.0); NEUT % 73.9 % (50.0-75.0); RBC 3.71 Mil/uL (3.80-5.20); RED CELL DISTRIBUTION WIDTH 16.4 % (11.5-14.5); WHITE BLOOD COUNT 14.4 K/uL (4.8-10.8)
[2018-05-25 06:50] LABS: ALB/GLOB RATIO 1.2 (1.0-2.1); ALBUMIN 3.1 g/dL (3.5-5.0); ALT/SGPT 321 U/L (9-52); AST/SGOT 117 U/L (14-36); BLOOD UREA NITROGEN 16 mg/dL (7-17); CALCIUM 8.5 mg/dl (8.6-10.4); GFR NON-AFRICAN AMERICAN > 60
[2018-05-25] MEDS: Potassium Chloride 20 mEq ER Tab PO SCH (09:35)
[2018-05-25] MEDS: Sodium Chloride 0.9% 1,000 ML IV SCH ×2 (09:37→17:39)
--- NOTE | 2018-05-25 14:40 | CP.PCM.PN ---
Subjective - Date & Time of Evaluation Date of Evaluation: 05/25/18 Time of Evaluation: 14:37 - Subjective Subjective: Sherri Fierro PGY1 Progress Note for Dr. Denise Patient was examined at bedside this morning. She reports improvement in her breathing. She denies fever ,chills, shortness of breath, or chest pain. Objective - Vital Signs/Intake and Output Vital Signs (last 24 hours): Temp Pulse Resp BP Pulse Ox 98.6 F 87 20 141/74 96 05/25/18 07:30 05/25/18 07:30 05/25/18 07:30 05/25/18 07:30 05/25/18 07:30 - Medications Medications: Current Medications Albuterol/Ipratropium (Duoneb 3 Mg/0.5 Mg (3 Ml) Ud) 3 ml INH RQ4 [facility] Last Admin: 05/25/18 11:41 Dose: 3 ml Amlodipine Besylate (Norvasc) 10 mg PO DAILY [facility] Last Admin: 05/25/18 09:36 Dose: 10 mg Benzonatate (Tessalon Perles) 100 mg PO TID [facility] Last Admin: 05/25/18 14:36 Dose: 100 mg Clonazepam (Klonopin) 0.5 mg PO DAILY [facility] Last Admin: 05/25/18 09:36 Dose: 0.5 mg Escitalopram Oxalate (Lexapro) 10 mg PO DAILY [facility] Last Admin: 05/25/18 09:35 Dose: 10 mg Guaifenesin (Robitussin) 100 mg PO Q4H PRN PRN Reason: Cough Last Admin: 05/25/18 05:58 Dose: 100 mg Piperacillin Sod/Tazobactam Sod (Zosyn 3.375 Gm Iv Premix) 3.375 gm in 50 mls @ 100 mls/hr IVPB Q6H [facility]; Protocol Last Admin: 05/25/18 09:36 Dose: 100 mls/hr Vancomycin HCl 1 gm/ Sodium (Chloride) 250 mls @ 166.7 mls/hr IVPB Q24H [facility]; Protocol Last Admin: 05/25/18 02:32 Dose: 166.7 mls/hr Sodium Chloride (Sodium Chloride 0.9%) 1,000 mls @ 100 mls/hr IV .Q10H [facility] Last Admin: 02/12/19 09:37 Dose: 100 mls/hr Lorazepam (Ativan) 0.5 mg PO Q8 PRN PRN Reason: Symptoms of alcohol withdrawl Last Admin: 05/23/18 10:49 Dose: 0.5 mg Potassium Chloride (K-Dur 20 Meq Er Tab) 20 meq PO DAILY [facility] Last Admin: 05/25/18 09:35 Dose: 20 meq - Labs Labs: 05/25/18 06:24 05/25/18 06:24 - Additional Findings Additional findings: - Constitutional Appears: Non-toxic, No Acute Distress - Head Exam Head Exam: ATRAUMATIC, NORMAL INSPECTION, NORMOCEPHALIC - Eye Exam Eye Exam: EOMI, Normal appearance - ENT Exam ENT Exam: Mucous Membranes Moist, Normal Exam - Neck Exam Neck Exam: Normal Inspection - Respiratory Exam Respiratory Exam: NORMAL BREATHING PATTERN. absent: Respiratory Distress, Rales, Rhonchi, wheezes - Cardiovascular Exam Cardiovascular Exam: Tachycardia, REGULAR RHYTHM - GI/Abdominal Exam GI & Abdominal Exam: Soft, Normal Bowel Sounds. absent: Distended, Tenderness - Extremities Exam Extremities Exam: Normal Inspection. absent: Calf Tenderness, Pedal Edema - Neurological Exam Neurological Exam: Alert, Awake, no tremors - Psychiatric Exam Psychiatric exam: Normal Affect, Normal Mood - Skin Skin Exam: Dry, Intact, Normal Color, Warm. absent: Diaphoretic Assessment and Plan - Assessment and Plan (Free Text) Assessment: 78 yo female w/ PMH of HTN, Depression/Anxiety, and asthma admitted for evaluation of SOB, treatment of asthma exacerbation and suspected pneumonia. Plan: Sepsis 2/2 Suspected Pneumonia - Chest CT: B/L basilar infiltrates in lower lobes/lingula/right middle lobe sub segments. Intermixed atelectasis likely. Biapical pleural fibrotic changes and superior segment right lower lobe pleura posteriorly - patient afebrile, no leukocytosis - bandemia resolved - Procalcitonin 31.26 - IV Abx: Zosyn 3.375mg IV q6h and Vanc 1gm q24h - Duoneb q4 [facility] - Tessalon Perles and Robitussin for cough - Pulmonology consulted, Dr. Silva: recs appreciated History of Etoh Abuse - ativan 0.5mg Q8H PRN withdrawal symptoms - patient not currently demonstrating signs of withdrawal Transaminitis, likely 2/2 alcohol intake - continues to downtrend - CT abd/pelvis: sigmoid diverticulosis, areas of focal fatty liver infiltration Hx of asthma - Duonebs q4 nancy Electrolyte Disturbaces - Hypokalemia resolved after repletion - Hyponatremia: 127 today. Urine osmolality 431, Urine random sodium 12. 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 - NS @100cc/hr - will continue to monitor HTN - Amlodipine 10mg po daily - Lasix 20mg po daily Depression/Anxiety - Lexapro 10mg po daily - Clonazepam 0.5mg po daily Patient seen and case discussed with Dr. Denise
[2018-05-25 14:44] LABS: SQUAMOUS EPITHIAL 1 /hpf (0-5)
[2018-05-25 14:59] LABS: URINE CLARITY Clear (Clear); URINE COLOR YELLOW (YELLOW)
[2018-05-25 15:00] LABS: URINE BILIRUBIN NEGATIVE (NEGATIVE); URINE BLOOD NEGATIVE (NEGATIVE); URINE GLUCOSE (UA) NEGATIVE (Normal); URINE LEUKOCYTE ESTERASE Negative Leu/uL (Negative); URINE PROTEIN NEGATIVE (NEGATIVE); URINE UROBILINOGEN 0.2 mg/dL (0.2-1.0)
--- NOTE | 2018-05-25 17:22 | CP.PCM.PN ---
Subjective - Date & Time of Evaluation Date of Evaluation: 05/25/18 Time of Evaluation: 11:30 - Subjective Subjective: Patient seen and examined Less short of breath but still wheezing Patient is afebrile Denies any chest pain Patient is awake and responsive Objective - Vital Signs/Intake and Output Vital Signs (last 24 hours): Temp Pulse Resp BP Pulse Ox 98.4 F 73 20 122/71 97 05/25/18 16:52 05/25/18 16:52 05/25/18 16:52 05/25/18 16:52 05/25/18 16:52 - Medications Medications: Current Medications Albuterol/Ipratropium (Duoneb 3 Mg/0.5 Mg (3 Ml) Ud) 3 ml INH RQ4 [facility] Last Admin: 05/25/18 16:38 Dose: 3 ml Amlodipine Besylate (Norvasc) 10 mg PO DAILY [facility] Last Admin: 05/25/18 09:36 Dose: 10 mg Benzonatate (Tessalon Perles) 100 mg PO TID [facility] Last Admin: 05/25/18 14:36 Dose: 100 mg Clonazepam (Klonopin) 0.5 mg PO DAILY [facility] Last Admin: 05/25/18 09:36 Dose: 0.5 mg Escitalopram Oxalate (Lexapro) 10 mg PO DAILY [facility] Last Admin: 05/25/18 09:35 Dose: 10 mg Guaifenesin (Robitussin) 100 mg PO Q4H PRN PRN Reason: Cough Last Admin: 05/25/18 05:58 Dose: 100 mg Piperacillin Sod/Tazobactam Sod (Zosyn 3.375 Gm Iv Premix) 3.375 gm in 50 mls @ 100 mls/hr IVPB Q6H [facility]; Protocol Last Admin: 05/25/18 14:38 Dose: 100 mls/hr Vancomycin HCl 1 gm/ Sodium (Chloride) 250 mls @ 166.7 mls/hr IVPB Q24H [facility]; Protocol Last Admin: 05/25/18 02:32 Dose: 166.7 mls/hr Sodium Chloride (Sodium Chloride 0.9%) 1,000 mls @ 100 mls/hr IV .Q10H [facility] Last Admin: 05/25/18 09:37 Dose: 100 mls/hr Lorazepam (Ativan) 0.5 mg PO Q8 PRN PRN Reason: Symptoms of alcohol withdrawl Last Admin: 05/23/18 10:49 Dose: 0.5 mg Potassium Chloride (K-Dur 20 Meq Er Tab) 20 meq PO DAILY [facility] Last Admin: 05/25/18 09:35 Dose: 20 meq - Labs Labs: 05/25/18 06:24 05/25/18 06:24 - Head Exam Head Exam: ATRAUMATIC, NORMOCEPHALIC - ENT Exam ENT Exam: Mucous Membranes Moist - Neck Exam Neck Exam: Normal Inspection - Respiratory Exam Respiratory Exam: Rhonchi, Wheezes - Cardiovascular Exam Cardiovascular Exam: REGULAR RHYTHM - GI/Abdominal Exam GI & Abdominal Exam: Soft, Normal Bowel Sounds Assessment and Plan (1) Multifocal pneumonia Assessment & Plan: Continue IV antibiotics Elevated pro calcitonin noted Follow-up culture and sensitivity Nebulizer treatment Steroids Status: Acute (2) Acute asthma exacerbation Status: Acute
[2018-05-26] MEDS: Piperacill/Tazo 3.375gm in Dex 3.375 GM/50 ML BAG IVPB SCH ×2 (02:05→08:34)
[2018-05-26] MEDS: Albuterol-Ipratrop 3 mg / 0.5 (3 ml) UD INH SCH ×3 (03:43→11:18)
[2018-05-26 07:51] VITALS: BP 135/75; PULSE 87; TEMP 98.2; O2SAT 96
[2018-05-26 08:10] LABS: BASO # 0.1 K/uL (0.0-0.2); BASO % 0.3 % (0.0-2.0); EOS # 0.4 K/uL (0.0-0.7); EOS % 2.4 % (0.0-4.0); LYMPH % 11.5 % (20.0-40.0); MEAN CELL VOLUME 92.2 fL (81.0-99.0); MEAN CORPUSCULAR HGB CONC 33.6 g/dL (33.0-37.0); MEAN PLATELET VOLUME 6.7 fL (7.2-11.7); MONO # 1.2 K/uL (0.0-0.8); MONO % 6.9 % (0.0-10.0); NEUT # 13.6 K/uL (1.8-7.0); NEUT % 78.9 % (50.0-75.0); NRBC % 0.1 % (0.0-2.0); RBC 3.87 Mil/uL (3.80-5.20); RED CELL DISTRIBUTION WIDTH 16.2 % (11.5-14.5); WHITE BLOOD COUNT 17.2 K/uL (4.8-10.8)
[2018-05-26 08:34] LABS: ALB/GLOB RATIO 1.2 (1.0-2.1); ALBUMIN 3.5 g/dL (3.5-5.0); ALT/SGPT 234 U/L (9-52); AST/SGOT 61 U/L (14-36); BLOOD UREA NITROGEN 10 mg/dL (7-17); CALCIUM 8.4 mg/dl (8.6-10.4); GFR NON-AFRICAN AMERICAN > 60
[2018-05-26] MEDS: Potassium Chloride 20 mEq ER Tab PO SCH (09:39)
--- NOTE | 2018-05-26 13:57 | CP.PCM.DIS ---
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 Physician Instructions: Reason For Exam: C/O SOB On Admission. 05/22/18 18:58 Pulmonology Consult Routine Comment: Consulting Provider: Miko Silva Consulting Physician: Miko Silva Reason for Consult: Pneumonia Time Spent in preparation of Discharge (in minutes): 70 Hospital Course - Lab Results Lab Results: Micro Results 05/25/18 14:27 Sputum Gram Stain - Final 05/25/18 14:27 Sputum Sputum Culture - Preliminary NORMAL ORAL LAURA 05/21/18 22:13 Blood Blood Culture - Preliminary NO GROWTH AFTER 4 DAYS 05/21/18 22:09 Blood Blood Culture - Preliminary NO GROWTH AFTER 4 DAYS 05/22/18 00:43 Urine,Clean Catch Urine Culture - Final No Growth (<1,000 CFU/ML) Most Recent Lab Values WBC 17.2 K/uL (4.8-10.8) H 05/26/18 07:46 RBC 3.87 Mil/uL (3.80-5.20) 05/26/18 07:46 Hgb 12.0 g/dL (11.0-16.0) 05/26/18 07:46 Hct 35.7 % (34.0-47.0) 05/26/18 07:46 MCV 92.2 fL (81.0-99.0) 05/26/18 07:46 MCH 31.0 pg (27.0-31.0) 05/26/18 07:46 MCHC 33.6 g/dL (33.0-37.0) 05/26/18 07:46 RDW 16.2 % (11.5-14.5) H 05/26/18 07:46 Plt Count 446 K/uL (130-400) H 05/26/18 07:46 MPV 6.7 fL (7.2-11.7) L 05/26/18 07:46 Neut % (Auto) 78.9 % (50.0-75.0) H 05/26/18 07:46 Lymph % (Auto) 11.5 % (20.0-40.0) L 05/26/18 07:46 [place] % (Auto) 6.9 % (0.0-10.0) 05/26/18 07:46 Eos % (Auto) 2.4 % (0.0-4.0) 05/26/18 07:46 Baso % (Auto) 0.3 % (0.0-2.0) 05/26/18 07:46 Neut # (Auto) 13.6 K/uL (1.8-7.0) H 05/26/18 07:46 Lymph # (Auto) 2.0 K/uL (1.0-4.3) 05/26/18 07:46 [place] # (Auto) 1.2 K/uL (0.0-0.8) H 05/26/18 07:46 Eos # (Auto) 0.4 K/uL (0.0-0.7) 05/26/18 07:46 Baso # (Auto) 0.1 K/uL (0.0-0.2) 05/26/18 07:46 Neutrophils % (Manual) 74 % (50-75) 05/23/18 08:00 Band Neutrophils % 4 % (0-2) H 05/23/18 08:00 Lymphocytes % (Manual) 9 % (20-40) L 05/23/18 08:00 Reactive Lymphs % 1 % (0-0) H 05/23/18 08:00 Monocytes % (Manual) 12 % (0-10) H 05/23/18 08:00 Metamyelocytes % 1 % (0-0) H 05/22/18 11:00 Toxic Granulation Present 05/22/18 11:00 Platelet Estimate Normal (NORMAL) 05/23/18 08:00 Plt Clumps, EDTA Present 05/22/18 11:00 Large Platelets Present 05/22/18 11:00 Polychromasia Slight 05/22/18 11:00 Hypochromasia (manual) Slight 05/23/18 08:00 Poikilocytosis (manual Slight 05/23/18 08:00 Anisocytosis (manual) Slight 05/23/18 08:00 Austyn Cells Slight 05/23/18 08:00 Puncture Site Rba 05/21/18 22:13 pCO2 36 mm/Hg (35-45) 05/21/18 22:13 pO2 93 mm/Hg (80-100) 05/21/18 22:13 HCO3 27.0 mmol/L (21-28) 05/21/18 22:13 ABG pH 7.47 (7.35-7.45) H 05/21/18 22:13 ABG Total CO2 27.3 mmol/L (22-28) 05/21/18 22:13 ABG O2 Saturation 98.9 % (95-98) H 05/21/18 22:13 ABG Base Excess 2.7 mmol/L (-2.0-3.0) 05/21/18 22:13 [place] Test Pos 05/21/18 22:13 ABG Potassium 2.9 mmol/L (3.6-5.2) L 05/21/18 22:13 A-a O2 Difference 76.0 mm/Hg 05/21/18 22:13 Respiratory Index 0.8 05/21/18 22:13 Sodium 129.0 mmol/l (132-148) L 05/21/18 22:13 Chloride 95.0 mmol/L (98-107) L 05/21/18 22:13 Glucose 130 mg/dl (65-105) H 05/21/18 22:13 Lactate 1.5 mmol/L (0.7-2.1) 05/21/18 22:13 FiO2 30.0 % 05/21/18 22:13 Sodium 133 mmol/L (132-148) 05/26/18 07:46 Potassium 4.0 mmol/L (3.6-5.2) 05/26/18 07:46 Chloride 99 mmol/L (98-107) 05/26/18 07:46 Carbon Dioxide 27 mmol/L (22-30) 05/26/18 07:46 Anion Gap 11 (10-20) 05/26/18 07:46 BUN 10 mg/dL (7-17) 05/26/18 07:46 Creatinine 0.7 mg/dL (0.7-1.2) 05/26/18 07:46 Est GFR ( Amer) > 60 05/26/18 07:46 Est GFR (Non-Af Amer) > 60 05/26/18 07:46 Random Glucose 98 mg/dL (65-105) 05/26/18 07:46 Serum Osmolality 282 mosm/kg (272-300) 05/22/18 07:55 Calcium 8.4 mg/dl (8.6-10.4) L 05/26/18 07:46 Phosphorus 3.8 mg/dL (2.5-4.5) 05/26/18 07:46 Magnesium 1.8 mg/dL (1.6-2.3) 05/26/18 07:46 Total Bilirubin 0.6 mg/dL (0.2-1.3) 05/26/18 07:46 AST 61 U/L (14-36) H D 05/26/18 07:46 ALT 234 U/L (9-52) H D 05/26/18 07:46 Alkaline Phosphatase 147 U/L (38-126) H 05/26/18 07:46 Total Protein 6.6 g/dL (6.3-8.3) 05/26/18 07:46 Albumin 3.5 g/dL (3.5-5.0) 05/26/18 07:46 Globulin 3.0 gm/dL (2.2-3.9) 05/26/18 07:46 Albumin/Globulin Ratio 1.2 (1.0-2.1) 05/26/18 07:46 Procalcitonin 31.26 NG/ML (0.19-0.49) H 05/22/18 07:55 Arterial Blood Potassium 2.9 mmol/L (3.6-5.2) L 05/21/18 22:13 Urine Color Yellow (YELLOW) 05/25/18 14:27 Urine Clarity Clear (Clear) 05/25/18 14:27 Urine pH 7.0 (5.0-8.0) 05/25/18 14:27 Ur Specific [place] 1.010 (1.003-1.030) 05/25/18 14:27 Urine Protein Negative mg/dL (NEGATIVE) 05/25/18 14:27 Urine Glucose (UA) Negative mg/dL (Normal) 05/25/18 14:27 Urine Ketones Negative mg/dL (NEGATIVE) 05/25/18 14:27 Urine Blood Negative (NEGATIVE) 05/25/18 14:27 Urine Nitrate Negative (NEGATIVE) 05/25/18 14:27 Urine Bilirubin Negative (NEGATIVE) 05/25/18 14:27 Urine Urobilinogen 0.2 mg/dL (0.2-1.0) 05/25/18 14:27 Ur Leukocyte Esterase Negative Ujdith/uL (Negative) 05/25/18 14:27 Urine WBC (Auto) < 1 /hpf (0-5) 05/25/18 14:27 Ur Squamous Epith Cells 1 /hpf (0-5) 05/25/18 14:27 Urine Osmolality 431 mosm/kg (300-1000) 05/22/18 23:44 Ur Random Sodium 12 mmol/L 05/23/18 00:40 Hepatitis A IgM Ab Negative (NEGATIVE) 05/22/18 07:55 Hep Bs Antigen Negative (NEGATIVE) 05/22/18 07:55 Hep B Core IgM Ab Negative (NEGATIVE) 05/22/18 07:55 Hepatitis C Antibody Negative (NEGATIVE) 05/22/18 07:55 HIV 1&2 Antibody Screen Negative (NEGATIVE) 05/22/18 07:55 Influenza Typ A,B (EIA) Negative for flu a/b (NEGATIVE) 05/21/18 22:09 H.influenzae Type B Ag Negative (NEGATIVE) 05/22/18 02:40 Ur L.pneumophila Ag Negative (NEGATIVE) 05/22/18 07:24 Mycoplasma pneumon IgM Negative (NEGATIVE) 05/22/18 07:55 N.meningitidis ACY/W135 Negative (NEGATIVE) 05/22/18 02:40 N.meningi B/E.coli K1 Ag Negative (NEGATIVE) 05/22/18 02:40 Group B Strep Antigen Negative (NEGATIVE) 05/22/18 02:40 - Hospital Course Hospital Course: Upon Admission: Patient is a 78 yo female w/ PMH of Depression/Anxiety, HTN, Asthma admitted to hospital for evaluation of sob and cough with brownish sputum production. Patient states that she felt feverish but had not recorded any home temperature. Denies sick contacts at home. Patient states she had her pneumonia vaccine with Dr. Denise. Patient states she was taking tylenol with honey at home for the infection. Patient states that the reason she did not come to hospital sooner was due to a move that her family was doing. Patient denies fevers, chills, chest pain, sob, n/v, constipation or diarrhea, and dysuria currently. CXR showed questionable infiltrates. Pt was admitted for pneumonia. Hospital Course: CT chest showed. B/L basilar infiltrates in lower lobes/lingula/right middle lobe sub segments. Intermixed atelectasis likely. Biapical pleural fibrotic changes and superior segment right lower lobe pleura posteriorly Patient was started on IV vanco and zosyn for pneumonia. Pulmonology was consulted and recommended duoneb treatments. Blood Cultures were negative. Sputum Cultures grew contaminants. Patient had transaminitis that improved over the course of her hospital stay. Patient had hypokalemia that improved with repletion. Patient had hyponatremia that improved prior to dischareg. Patient was restarted on home lexapro and klonopin for anxiety and depression. Patient's shortness of breath improved with duoneb treatments. She remained afebrile for the remainder of her hospital course. Patient was deemed stable for discharge. Upon Discharge: Patient was deemed stable for discharge to home. Patient was instructed to follow up with Dr. Denise within a week and to complete a 7 day course of Levaquin. Patient understood instructions and agreed. Discharge Exam - Head Exam Head Exam: ATRAUMATIC, NORMOCEPHALIC - Eye Exam Eye Exam: EOMI, Normal appearance, PERRL Pupil Exam: NORMAL ACCOMODATION - ENT Exam ENT Exam: Mucous Membranes Moist - Respiratory Exam Respiratory Exam: Clear to PA & Lateral, NORMAL BREATHING PATTERN. absent: Rales, Rhonchi, Wheezes, Respiratory Distress - Cardiovascular Exam Cardiovascular Exam: REGULAR RHYTHM, +S1. absent: Gallop, Rubs, Systolic Murmur - GI/Abdominal Exam GI & Abdominal Exam: Normal Bowel Sounds, Soft. absent: Distended, Firm, Tenderness - Neurological Exam Neurological exam: Alert, Oriented x3 - Psychiatric Exam Psychiatric exam: Depressed - Skin Skin Exam: Dry, Normal Color Discharge Plan - Discharge Medications Prescriptions: Albuterol 0.083% [Albuterol 0.083% Inhal Emily (2.5 mg/3 ml) UD] 3 ml IH DAILY #1 neb amLODIPine [Norvasc] 10 mg PO DAILY #30 tab Escitalopram [Lexapro] 20 mg PO DAILY #30 tab Levofloxacin [Levaquin] 500 mg PO DAILY #7 tablet - Follow Up Plan Condition: FAIR Disposition: HOME/ ROUTINE Instructions: Asthma, Adult (DC), Pneumonia, Adult (DC), Liver Function Test, Leukocytosis (DC) Additional Instructions: Please follow up with Dr. Denise within 1 week. Please call to make an appointment. Please take your medications as prescribed. If symptoms worsen, please return to the emergency department. Take care and be well. Por favor adilene un seguimiento con el Dr. Denise dentro de 1 semana. Llame a para hacer minor marcio. Por favor, tome karyn medicamentos segn lo prescrito. [place] el antibiotico Levaquin con comida y agua, lnisey vez al scottie por 7 canchola Si los sntomas empeoran, por favor regrese al departamento de emergencias. Cudate y sintete kari. Referrals: Miko Silva MD [Staff Provider] - Jaylon Denise Jr., MD [Medical Doctor] -
--- NOTE | 2018-05-26 18:59 | CP.PCM.PN ---
Subjective - Date & Time of Evaluation Date of Evaluation: 05/26/18 Time of Evaluation: 14:00 - Subjective Subjective: Patient seen and examined at bedside Patient is comfortable and currently on a nebulizer Afebrile Denies SOB, CP, nausea, vomiting Clear for discharge today Physical Exam: Gen: AAOx3, no acute distress Cardio: RRR, no murmur Pulm: Mild wheezing bilaterally A/P Asthma -Continue steroids outpatient -Continue nebulizer treatments outpatient Multifocal pneumonia -switch to PO Levaquin for discharge -f/u sputum culture (gram stain showed rare gram positive cocci) Objective - Vital Signs/Intake and Output Vital Signs (last 24 hours): Temp Pulse Resp BP Pulse Ox 98.2 F 87 20 135/75 96 05/26/18 07:20 05/26/18 07:20 05/26/18 07:20 05/26/18 07:20 05/26/18 07:20 - Labs Labs: 05/26/18 07:46 05/26/18 07:46 Assessment and Plan (1) Multifocal pneumonia Status: Acute (2) Acute asthma exacerbation Status: Acute
== END 2018-05-26 14:26 | disposition home or self-care (01) | DRG 194 ==
LOC: C.ER 21:07 → C.6T 05-22 00:10
PROVIDERS: ADMIT Internal Medicine; ATTEND Internal Medicine
DX: J18.9 Pneumonia, unspecified organism (principal); J44.0 Chronic obstructive pulmonary disease with (acute) lower respiratory infection; J45.901 Unspecified asthma with (acute) exacerbation; J98.11 Atelectasis; E87.1 Hypo-osmolality and hyponatremia; E87.6 Hypokalemia; F06.4 Anxiety disorder due to known physiological condition; F32.9 Major depressive disorder, single episode, unspecified; I10 Essential (primary) hypertension; Z23 Encounter for immunization; K44.9 Diaphragmatic hernia without obstruction or gangrene; Z87.891 Personal history of nicotine dependence; E87.5 Hyperkalemia